=== PATIENT | male | born 1970 | race Caucasian/White ===

== ENCOUNTER 2020-05-10 15:18 | Observation (INO) | payer OTHER, SELFPAY ==
[2020-05-10] VITALS (8 sets, daily range): BP systolic 141–151; BP diastolic 82–87; PULSE 73–86; RESP 16–18; TEMP 36.5–37.1; O2SAT 96–98; BMI 24.6; BMI 24.5
--- NOTE | 2020-05-10 15:59 | EKG12_ITS ---
Test Reason : CP Blood Pressure : / mmHG Vent. Rate : 087 BPM Atrial Rate : 087 BPM P-R Int : 144 ms QRS Dur : 090 ms QT Int : 342 ms P-R-T Axes : 051 -04 -50 degrees QTc Int : 411 ms Normal sinus rhythm Nonspecific T wave abnormality :Consider Myocardial Ischemia Abnormal ECG Confirmed by LIZBET NAVAS, MELY ([id number]), slot editor ULISES BELLO ([id number]) on 05/14/2020 2:28:59 PM Referred By: ZIA Confirmed By:MELY SOMERS MD
--- NOTE | 2020-05-10 16:12 | ED.DCSUM_ITS ---
History of Present Illness Chief Complaint: Chest Pain Informant: Patient Narrative: Patient is a 49-year-old previously healthy male who presents to the emergency department for chest pain. Mostly on the left side of his chest but does go up his neck and also down his arm. He has had this intermittently over the past month. He does not know aggravating factors. He currently rates his symptoms as mild. No associated shortness of breath. He states his last stress test was 5 years ago which was normal. He has a significant family history of cardiac disease with his father and brother requiring bypass surgery. He denies any leg swelling or calf pain. No history of DVT/PE. He has not been taking anything for this. Patient denies smoking history. No associated nausea/vomiting. No recent illnesses including any cough or fever/chills. Past Medical History - Allergies and Home Meds Allergies/Adverse Reactions: Allergies acetaminophen [From Tylenol] Adverse Reaction (Verified 05/10/20 18:31) Laryngospasms Prior records reviewed: Yes Past Medical History: None Smoking Status: Former smoker - Family History Maternal Family History: Reports: - - Denies known maternal medical history including cardiac history. Paternal Family History: Reports: Heart Disease Sibling Family History: Reports: Heart Disease Review of Systems All systems negative except as indicated General: Denies: Chills, Fever, Sweats Eyes: Denies: Visual changes - bilaterally, Diplopia ENT: Denies: Rhinorrhea, Sore throat Cardiovascular: Reports: Chest pain. Denies: Palpitations Respiratory: Denies: Dyspnea, Cough, Dyspnea on exertion Gastrointestinal: Denies: Abdominal pain, Nausea, Vomiting, Diarrhea Genitourinary: Denies: Dysuria, Hematuria, Frequency Musculoskeletal: Denies: Back pain, Extremity Pain Skin: Denies: Rash, Wounds Neurological: Denies: Headache, Weakness, Numbness Physical Exam Vital Signs/Narrative: Vital Signs Temp Pulse Resp BP Pulse Ox 05/10/20 16:04 98 05/10/20 15:36 84 17 141/83 H 98 05/10/20 15:19 97.8 F 86 16 151/87 H 96 Inital Vital Signs reviewed: Yes General: Well nourished, Well developed, No Acute Distress Head: Normocephalic, Atraumatic Eyes: Perrl, EOMI ENT: Moist mucous membranes, No rhinorrhea Neck: Supple, Nontender Cardiovascular: Regular rate, Regular rhythm, No murmurs Respiratory: No distress, CTA bilaterally, Chest nontender Abdomen: Soft, Nontender, Nondistended, Normal bowel sounds Back: Nontender, Normal Inspection Extremities: Nontender, No edema. Negative for: Calf Tenderness Skin: Normal color, No rash Neurological: Alert, Oriented x3, Normal Strength, Normal Sensation Psychological: Normal affect, Normal Mood Diagnostic/Tx/Re-eval - EKG Initial EKG Interpretation: Sinus Rhythm, Inverted T-Waves, Non-Specific ST Changes - Medical Decision Making Patient presents to the emergency department for chest pain. It has been intermittent and radiates. He has a significant family history. EKG, chest x- ray basic lab work being obtained. Patient given a dose of aspirin. Patient's EKG did not show any signs of acute ST elevation or depression. There are some T wave inversions. He has a highly suspicious story, significant risk factor with the family and with his age he has a heart score of 6. His troponin is mildly elevated. Will bring him into the hospital for further evaluation and management. He understands and is agreeable with this plan. He otherwise has been stable throughout ED stay. ED Disposition - Plan for ED Patient: Disposition: Acute Care Hospital [facility] Diagnosis: NSTEMI (non-ST elevated myocardial infarction), Chest pain
--- NOTE | 2020-05-10 16:14 | RAD_ITS ---
STUDY: X-RAY CHEST REASON FOR EXAM: Male, 49 years old. chest pain TECHNIQUE: Single AP portable view of the chest. COMPARISON: None. FINDINGS: The lungs are clear and expanded. There is no demonstrated pleural abnormality. Normal size heart. Normal mediastinum and kevin. Normal visualized pulmonary arteries. Normal visualized aortic arch and descending thoracic aorta. Normal visualized thoracic spine. Normal visualized ribs, clavicles, and shoulders. There is no demonstrated abnormality of the visualized soft tissue structures of the upper abdomen. RAD/Chest 1 View (Portable) IMPRESSION: Normal x-ray examination of the chest. Electronically Signed: Araceli Mueller MD at 17:17 EST Tel , Service support ,
[2020-05-10 16:24] LABS: Absolute Lymphocyte Count 2.66 X10^3/uL (0.83-4.51); Absolute Neutrophil Count 5.6 X10^3/uL (2.0-7.7); Basophil# 0.07 X10^3/uL; Basophil% 0.7 % (0-1); Eosinophil# 0.12 X10^3/uL; Eosinophils% 1.3 % (0-5); Hematocrit 44.5 % (40-54); Hemoglobin 14.9 g/dL (13.0-16.5); Lymphocyte # 2.66 X10^3/ul (4.0); Lymphocyte % 28.1 % (19-41); Mean Corp Hgb Conc 33.5 g/dL (32-36); Mean Corpuscular Hgb 30.1 pg (27.0-32.0); Mean Corpuscular Volume 89.9 fL (80-94); Mean Platelet Vol. 8.8 fl (6.2-12.0); Monocyte% 10.6 % (0-10); NRBC Flagged by Analyzer 0 % (0-5); Neutrophil # 5.58 X10^3/uL (2.7-7.7); Neutrophil % 58.9 % (47-70); Platelet Count 303 K/mm3 (150-450); RBC Distribution Width CV 12.4 % (11.6-14.6); RBC Distribution Width SD 40.9 fl (35.1-43.9); Red Blood Count 4.95 M/mm3 (4.6-6.2); White Blood Count 9.5 K/mm3 (4.4-11.0)
[2020-05-10 16:32] LABS: Anion Gap 5 (5-15); BUN 17 mg/dL (7-18); BUN/Creat Ratio 16.5 RATIO (10-20); Calcium,Total 9.3 mg/dL (8.5-10.1); Chloride 109 mmol/L (98-107); Creatinine, Serum 1.03 mg/dL (0.70-1.30); EST Glomerular Filtration Rate 81 mL/min (>60); Est Glom Filt Rate - Afr Amer 98 mL/min (>60); Glucose 96 mg/dL (74-106); Potassium 3.8 mmol/L (3.5-5.1); Sodium Level 141 mmol/L (136-145)
[2020-05-10] MEDS: Aspirin 81 MG TAB.CHEW 324 MG PO (16:32)
--- NOTE | 2020-05-10 17:08 | EKG12_ITS ---
Test Reason : CP ADMIT Blood Pressure : / mmHG Vent. Rate : 063 BPM Atrial Rate : 063 BPM P-R Int : 156 ms QRS Dur : 096 ms QT Int : 374 ms P-R-T Axes : 051 009 -59 degrees QTc Int : 382 ms Normal sinus rhythm T wave abnormality, consider inferolateral ischemia Abnormal ECG Confirmed by LIZBET NAVAS, MELY ([id number]), supervising editor trailer ULISES BELLO ([id number]) on 05/14/2020 2:35:55 PM Referred By: YANG Confirmed By:MELY SOMERS MD
--- NOTE | 2020-05-10 17:26 | HP.PCM_ITS ---
<Samantha Scott [employer]S WORKER - Last Filed: 05/10/20 17:35> Problem List (1) Chest pain Status: Acute (2) Hyperlipidemia Status: Chronic History of Present Illness Date of Admission: 05/10/20 Chief Complaint: Chest pain. The patient is a 49 year old M who presents the emergency room due to chest pain. Patient reports chest pain is on the left side of his chest and radiates down his left arm all the way to his wrist and also up the left side of his neck. He states symptoms have been intermittent for the past month. He thinks his symptoms are worse on an empty stomach. 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 He denies shortness of breath, diaphoresis, nausea. Patient states he had a stress test 5 years ago which was normal. He has a past medical history of hyperlipidemia. He was on a statin in the past and had to discontinue due to muscle cramping. Patient reports a significant family cardiac history including his father and brother who both have a history of CAD with bypass. Past Medical History Past Medical History (Chronic Problems): Chronic Problems Hyperlipidemia (Chronic) Allergies No Known Allergies Allergy (Verified 05/10/20 15:19) Home Medications: Ambulatory Orders Medication Instructions Recorded NK 05/10/20 Surgical History: no surgical history Psychiatric History: No pertinent psych hx Lives: Spouse/ Significant Other Smoking Status: Never smoker Alcohol: None Drugs: None - *Family History Maternal History Items: - - Denies known maternal medical history including cardiac history. Paternal History Items: Heart Disease Sibling History Items: Heart Disease Review of Systems Constitutional: Denies: Chills, Fever, Weight Change HEENT: Denies: Head Aches, Sinus Congestion, Sinus Drainage Cardiovascular: Reports: Chest Pain Respiratory: Denies: Cough, Shortness of breath at rest, Sputum production Gastrointestinal: Denies: Abdominal Pain, Nausea, Vomiting Genitourinary: Denies: Dysuria Musculoskeletal: Denies: Joint Pain, Joint Tenderness Skin: Denies: Rash, Wounds Neurological: Denies: Numbness, Tingling, Focal weakness Psychiatric: Denies: Anxiety, Depression, Homicidal Ideations, Suicidal Ideations Hematologic/ Lymphatic: Denies: Easy Bruising, Easy Bleeding VTE Information - Inpt Only VTE Present on Admission: No VTE Mechan Device Prophylaxis: None VTE Pharm Prophylaxis ordered?: Yes - Physical Exam Vitals/I&O's: Vital Signs Temp Pulse Resp BP Pulse Ox 97.8 F 84 17 141/83 H 98 05/10/20 15:19 05/10/20 15:36 05/10/20 15:36 05/10/20 15:36 05/10/20 16:04 Oxygen Delivery Method Room Air Weight: 167 lb Body Mass Index (BMI) 24.6 General: Alert, Oriented x3, Cooperative HEENT: Atraumatic, PERRLA, EOMI, Normocephalic Neck: Supple, No JVD, Negative Carotid Bruits Lungs: Clear to auscultation, Normal air movement Cardiovascular: Regular rate, No murmurs Abdomen: Bowel Sounds Present, Soft, Non Tender Extremities: No clubbing, No cyanosis, No edema, Capillary Refill Less than 3 Seconds Skin: No rashes, No breakdown Musculoskeletal: No Tenderness to Palpation of Joints or Extremities Neurological: Cranial nerves II-XII grossly intact, Neuro grossly intact Psych/Mental Status: Normal Affect, Appropriate Laboratory Results 05/10/20 15:30: WBC 9.5, RBC 4.95, Hgb 14.9, Hct 44.5, MCV 89.9, MCH 30.1, MCHC 33.5, RDW Std Deviation 40.9, RDW Coeff of Sayda 12.4, Plt Count 303, MPV 8.8, Immature Gran % (Auto) 0.400, Neut % (Auto) 58.9, Lymph % (Auto) 28.1, Jefferson % (Auto) 10.6 H, Eos % (Auto) 1.3, Baso % (Auto) 0.7, Absolute Neuts (auto) 5.6, Absolute Lymphs (auto) 2.66, Nucleated RBC % 0 05/10/20 15:30: Sodium 141, Potassium 3.8, Chloride 109 H, Carbon Dioxide 27.0, Anion Gap 5, BUN 17, Creatinine 1.03, Estim Creat Clear Calc 85.80, Est GFR (MDRD) Af Amer 98, Est GFR (MDRD) Non-Af 81, BUN/Creatinine Ratio 16.5, Glucose 96, Calcium 9.3, Troponin I 0.080 H Current Medications Acetaminophen (Acetaminophen 325 Mg Tablet) 650 mg PO Q6H PRN PRN PRN Reason: Pain Score 1-10/Temp > 100.7 F Aspirin (Aspirin E.C. 81 Mg Tablet) 81 mg PO DAILY@0800 [facility] Atorvastatin Calcium (Atorvastatin Calcium 40 Mg Tablet) 40 mg PO QHS [facility] Assessment/Plan All Active Problems Chest pain (Acute) 1. Chest pain-initial troponin 0.08. EKG without acute ischemia however demonstrates T wave inversions. Aspirin. Trend enzymes. Plan for treadmill stress test in a.m. unless troponins increase. If troponins trend upward, cardiology consult. 2. Indeterminate troponin-initial troponin 0.08. Trend enzymes. 3. Hyperlipidemia-not on regimen due to history of cramping with statins. Fasting lipid panel in a.m. DVT prophylaxis-Lovenox subcu This patient was seen by SOURAV Mercedes under the supervision of Dr. Cantu. <Alma Cantu - Last Filed: 05/10/20 19:36> History of Present Illness I agree with the above and the following is a reflection of my independent history and physical exam Mr Hill is a 49 year old M with a PMH of HPL who presented to the ED on 05/10 with CP. The pain is L side and radiates to his L neck and shoulder and even down his L arm at times. He states that he has no other associated sx and it is not necessarily induced by exertion. It has been fluctuating for about the last month. He states that his father at 56 from a massive SC and that his brother had a CABGx3 when he was in his mid 40's. The pt had a normal stress test about 5 yrs ago. He is HTN in the ED but all other vitals are stable. EKG showed mild (>1mm) of ST depression in V5-6. His initial troponin was mildly elevated at 0.08. CXR is unremarkable. He is currently pain free. He wanted to leave [place] initially but elected to stay. Past Medical History Allergies acetaminophen [From Tylenol] Adverse Reaction (Verified 05/10/20 18:31) Laryngospasms Review of Systems Constitutional: Denies: Anorexia, Chills, Fever, Malaise, Weakness, Weight Change, Fatigue Cardiovascular: Reports: Chest Pain, Chest Tightness. Denies: Edema, Heaviness, Light Headedness, Orthopnea, Palpitations, Paroxysmal Noc. Dyspnea, Syncope Respiratory: Denies: Cough, Hemoptysis, Pleuritic Pain, Shortness of Breath, Shortness of breath upon exertion, Sputum production, Wheezing Gastrointestinal: Denies: Abdominal Pain, Constipation, Diarrhea, Nausea, Vomiting Genitourinary: Denies: Dysuria, Frequency Musculoskeletal: Denies: Joint Pain, Joint stiffness, Joint swelling, Joint Tenderness Skin: Denies: Dryness, Jaundice, Lesions, Pruritis, Rash, Skin Changes, Wounds Neurological: Denies: Slurred speech, Confusion, Focal weakness, Headaches, Incoordination, Numbness, Tingling, Tremor, Seizures Psychiatric: Denies: Anxiety, Depression Hematologic/ Lymphatic: Denies: Anemia, Easy Bruising, Easy Bleeding VTE Information - Inpt Only VTE Present on Admission: No - Physical Exam Vitals/I&O's: Vital Signs Temp Pulse Resp BP Pulse Ox 98.5 F 80 18 151/86 H 98 05/10/20 18:00 05/10/20 18:00 05/10/20 18:00 05/10/20 18:00 05/10/20 18:00 Oxygen Delivery Method Room Air Weight: 75.2 kg Body Mass Index (BMI) 24.5 General: Alert, Oriented x3, Cooperative, No apparent distress, Well developed, Well nourished, - - middle aged Methodist male, lying in bed, appears comfortable HEENT: Atraumatic, PERRLA, EOMI, Normocephalic, EAC Clear Oral: Moist Mucosa Neck: Supple, No JVD, Negative Carotid Bruits, Trachea Midline, Thyroid Normal Size and Texture Lungs: Clear to auscultation, Normal air movement, No rhonchi, No wheeze, No rales Cardiovascular: Regular rate, Regular Rhythm, Normal S1, Normal S2, No murmurs, No Ectopic Activity, No rub noted, No Gallop Abdomen: Bowel Sounds Present, Soft, Non Tender Extremities: No clubbing, No cyanosis, No edema, Capillary Refill Less than 3 Seconds, Peripheral Pulses Normal Skin: No rashes, No breakdown Neurological: Cranial nerves II-XII grossly intact, Neuro grossly intact Psych/Mental Status: Normal Affect, Appropriate Laboratory Results 05/10/20 15:30: WBC 9.5, RBC 4.95, Hgb 14.9, Hct 44.5, MCV 89.9, MCH 30.1, MCHC 33.5, RDW Std Deviation 40.9, RDW Coeff of Sayda 12.4, Plt Count 303, MPV 8.8, Immature Gran % (Auto) 0.400, Neut % (Auto) 58.9, Lymph % (Auto) 28.1, Jefferson % (Auto) 10.6 H, Eos % (Auto) 1.3, Baso % (Auto) 0.7, Absolute Neuts (auto) 5.6, Absolute Lymphs (auto) 2.66, Nucleated RBC % 0 05/10/20 15:30: Sodium 141, Potassium 3.8, Chloride 109 H, Carbon Dioxide 27.0, Anion Gap 5, BUN 17, Creatinine 1.03, Estim Creat Clear Calc 85.80, Est GFR (MDRD) Af Amer 98, Est GFR (MDRD) Non-Af 81, BUN/Creatinine Ratio 16.5, Glucose 96, Calcium 9.3, Troponin I 0.080 H 05/10/20 18:58: Troponin I Pending Current Medications Aspirin (Aspirin E.C. 81 Mg Tablet) 81 mg PO DAILY@0800 JAIRO Enoxaparin Sodium (Enoxaparin 40 Mg/0.4 Ml Syringe) 40 mg SC DAILY JAIRO Sodium Chloride (0.9% Saline Lock 10 Ml Syringe) 10 - 40 ml IV UD PRN PRN Reason: SALINE FLUSH Assessment/Plan ASSESSMENT CP Indeterminate Troponin HPL Elevated BP PLAN -cycle enzymes -had mm cramping with statins so not treated -asa TM Stress test in am if no sig rise in troponin -if trend up with consult cards for cath -am lipids -watch BP--> if remains elevated may need rx at d/c Inpatient E&M: 89780 Init Hosp L2
[2020-05-11] VITALS (17 sets, daily range): BP systolic 122–154; BP diastolic 72–110; PULSE 65–95; RESP 16–18; TEMP 36.3–37.2; O2SAT 96–99
[2020-05-11] MEDS: 0.9% Saline Lock 10 ML Syringe IV ×2 (03:14→12:47)
--- NOTE | 2020-05-11 05:55 | EKG12_ITS ---
Test Reason : AM EKG Blood Pressure : / mmHG Vent. Rate : 071 BPM Atrial Rate : 071 BPM P-R Int : 158 ms QRS Dur : 098 ms QT Int : 384 ms P-R-T Axes : 051 006 -61 degrees QTc Int : 417 ms Normal sinus rhythm T wave abnormality, consider inferolateral ischemia Abnormal ECG Confirmed by LIZBET NAVAS, MELY ([id number]), purchasing expeditor ULISES BELLO ([id number]) on 05/14/2020 2:44:57 PM Referred By: YANG Confirmed By:MELY SOMERS MD
[2020-05-11] MEDS: Aspirin E.C. 81 MG Tablet PO (06:23)
[2020-05-11 06:27] LABS: Cholesterol 269 mg/dL (200); High Density Lipoprotein 52 mg/dL; Triglycerides 103 mg/dL; Very Low Density Lipoprotein 21 mg/dL (5-40)
--- NOTE | 2020-05-11 10:51 | STRESSREP ---
Stress Test Report Date: 05-11-2020 Procedure: Exercise tolerance test/imaging study Indications: Chest pain Consent: Per the patient Procedure: The patient exercised on a Jono protocol for 9 minutes completing Stage III achieving a peak heart rate of 155 bpm (91% predicted maximal heart rate) with a peak blood pressure 178/98 mmHg and a peak MET capacity of 10 METs. The baseline ECG demonstrated normal sinus rhythm; T wave abnormality: Consider myocardial fgegltjf-[id number]-ogeifex-inferior. The peak exercise ECG demonstrated no obvious ECG changes. There were occasional PVCs and an isolated ventricular couplet during exercise and occasional PVCs during recovery. The functional capacity was considered good. There was no complaint of chest discomfort during exercise or recovery. The examination was discontinued secondary to target heart rate achieved. Impression: 1. Technically adequate (percent predicted maximal heart rate greater than 85%) exercise tolerance test 2. Peak exercise ECG with no obvious ECG changes 3. There were occasional PVCs and an isolated ventricular couplet during exercise and occasional PVCs during recovery 4. Nuclear images pending Myocardial perfusion imaging study: Technique: The patient was injected with 11.7 mCi of technetium 99m Cardiolite and subsequently rest SPECT Cardiolite nuclear imaging was obtained in the horizontal long, vertical long, and short axis views. The patient exercised on a Jono protocol for 9 minutes completing Stage III achieving a peak heart rate of 155 bpm (91% predicted maximal heart rate) with a peak blood pressure 178/98 mmHg and a peak MET capacity of 10 METs. The patient was injected with 32.5 mCi of technetium 99m Cardiolite and subsequently stress SPECT Cardiolite nuclear imaging was obtained in the horizontal long, vertical long, and short axis views. A gated Cardiolite study at peak stress was obtained. Interpretation: Rest and stress SPECT Cardiolite nuclear imaging status post realignment, normalization, and attenuation correction, demonstrates the appearance status post stress of an area of diminished tracer uptake in portions of the mid inferior segments. There is end systolic thickening and brightening. The gated Cardiolite study demonstrates myocardial thickening and inward wall motion. The reported LVEF is 58%. Impression: 1. Rest and stress SPECT Cardiolite nuclear imaging demonstrate myocardial perfusion changes concerning for an area of stress-induced myocardial ischemia in the mid inferior segments, however, an element of shifting soft tissue attenuation/artifact cannot necessarily be excluded. 2. The gated Cardiolite study reports an LVEF of 58%. This note was generated with [employer] software. It may contain incorrect words, spelling, and punctuation that were not noted in checking the note before signing.
--- NOTE | 2020-05-11 11:49 | PCM.PROGNOTE ---
<TylerSamantha PANTS MAKER - Last Filed: 05/11/20 11:56> Patient Problems: Active and Suspected Problems Chest pain (Acute) NSTEMI (non-ST elevated myocardial infarction) (Acute) Subjective: Patient seen and examined. Denies further chest pain overnight. Underwent nuclear stress test which was reported to be abnormal, demonstrating stress-induced myocardial ischemia. - Physical Exam Vitals/I&O's: Vital Signs Temp Pulse Resp BP Pulse Ox 98.9 F 95 16 122/75 H 98 05/11/20 06:20 05/11/20 11:47 05/11/20 06:20 05/11/20 06:20 05/11/20 06:20 Oxygen Delivery Method Room Air Weight: 165 lb 12.602 oz Body Mass Index (BMI) 24.5 Intake and Output for Last 24 Hours 05/09/20 05/10/20 05/11/20 23:59 23:59 23:59 Intake Total 475 / 475 Output Total 900 / 900 Balance 475 / 475 -900 / -900 General: Alert, Oriented x3, Cooperative HEENT: Atraumatic, PERRLA, EOMI, Normocephalic Neck: Supple, No JVD, Negative Carotid Bruits Lungs: Clear to auscultation, Normal air movement Cardiovascular: Regular rate, No murmurs Abdomen: Bowel Sounds Present, Soft, Non Tender, Non-Distended Extremities: No clubbing, No cyanosis, No edema, Capillary Refill Less than 3 Seconds Skin: No rashes, No breakdown Musculoskeletal: No Tenderness to Palpation of Joints or Extremities Neurological: Cranial nerves II-XII grossly intact, Neuro grossly intact Psych/Mental Status: Normal Affect, Appropriate Laboratory Results 05/10/20 15:30: WBC 9.5, RBC 4.95, Hgb 14.9, Hct 44.5, MCV 89.9, MCH 30.1, MCHC 33.5, RDW Std Deviation 40.9, RDW Coeff of Sayda 12.4, Plt Count 303, MPV 8.8, Immature Gran % (Auto) 0.400, Neut % (Auto) 58.9, Lymph % (Auto) 28.1, [place] % (Auto) 10.6 H, Eos % (Auto) 1.3, Baso % (Auto) 0.7, Absolute Neuts (auto) 5.6, Absolute Lymphs (auto) 2.66, Nucleated RBC % 0 05/10/20 15:30: Sodium 141, Potassium 3.8, Chloride 109 H, Carbon Dioxide 27.0, Anion Gap 5, BUN 17, Creatinine 1.03, Estim Creat Clear Calc 85.80, Est GFR (MDRD) Af Amer 98, Est GFR (MDRD) Non-Af 81, BUN/Creatinine Ratio 16.5, Glucose 96, Calcium 9.3, Troponin I 0.080 H 05/10/20 18:58: Troponin I 0.062 H 05/10/20 21:33: Troponin I 0.062 H 05/11/20 05:15: Triglycerides 103, Cholesterol 269 H, LDL Cholesterol 196 H, VLDL Cholesterol 21, HDL Cholesterol 52 Current Medications Aspirin (Aspirin E.C. 81 Mg Tablet) 81 mg PO DAILY@0800 [facility] Last Admin: 05/11/20 06:23 Dose: 81 mg Documented by: Enoxaparin Sodium (Enoxaparin 40 Mg/0.4 Ml Syringe) 40 mg SC DAILY [facility] Sodium Chloride (0.9% Saline Lock 10 Ml Syringe) 10 - 40 ml IV UD PRN PRN Reason: SALINE FLUSH Last Admin: 05/11/20 03:14 Dose: 10 ml Documented by: Medical Necessity - Tobacco Use Smoking Status: Never smoker Tobacco Use: Non-smoker Assessment/Plan All Active Problems Chest pain (Acute) NSTEMI (non-ST elevated myocardial infarction) (Acute) 1. Chest pain, abnormal stress test-EKG without acute ischemia however demonstrates T wave inversions. Aspirin. Patient underwent stress test which demonstrated possible stress induced myocardial ischemia in the mid inferior segments. Cardiology consult placed. 2. Indeterminate troponin-enzymes trended down. Abnormal stress test as noted above. Cardiology consulted. 3. Hyperlipidemia-history of statin intolerance. Lipid panel elevated. Will begin low-dose statin to see if patient is able to tolerate. DVT prophylaxis-Lovenox subcu This patient was seen by SOURAV Mercedes under the supervision of Dr. Dejesus. <Wali Dejesus - Last Filed: 05/11/20 12:25> - Physical Exam Vitals/I&O's: Vital Signs Temp Pulse Resp BP Pulse Ox 98.9 F 95 16 122/75 H 98 05/11/20 06:20 05/11/20 11:47 05/11/20 06:20 05/11/20 06:20 05/11/20 06:20 Oxygen Delivery Method Room Air Weight: 75.2 kg Body Mass Index (BMI) 24.5 Intake and Output for Last 24 Hours 05/09/20 05/10/20 05/11/20 23:59 23:59 23:59 Intake Total 475 / 475 Output Total 900 / 900 Balance 475 / 475 -900 / -900 Laboratory Results 05/10/20 15:30: WBC 9.5, RBC 4.95, Hgb 14.9, Hct 44.5, MCV 89.9, MCH 30.1, MCHC 33.5, RDW Std Deviation 40.9, RDW Coeff of Sayda 12.4, Plt Count 303, MPV 8.8, Immature Gran % (Auto) 0.400, Neut % (Auto) 58.9, Lymph % (Auto) 28.1, [place] % (Auto) 10.6 H, Eos % (Auto) 1.3, Baso % (Auto) 0.7, Absolute Neuts (auto) 5.6, Absolute Lymphs (auto) 2.66, Nucleated RBC % 0 05/10/20 15:30: Sodium 141, Potassium 3.8, Chloride 109 H, Carbon Dioxide 27.0, Anion Gap 5, BUN 17, Creatinine 1.03, Estim Creat Clear Calc 85.80, Est GFR (MDRD) Af Amer 98, Est GFR (MDRD) Non-Af 81, BUN/Creatinine Ratio 16.5, Glucose 96, Calcium 9.3, Troponin I 0.080 H 05/10/20 18:58: Troponin I 0.062 H 05/10/20 21:33: Troponin I 0.062 H 05/11/20 05:15: Triglycerides 103, Cholesterol 269 H, LDL Cholesterol 196 H, VLDL Cholesterol 21, HDL Cholesterol 52 Current Medications Aspirin (Aspirin E.C. 81 Mg Tablet) 81 mg PO DAILY@0800 [facility] Last Admin: 05/11/20 06:23 Dose: 81 mg Documented by: Atorvastatin Calcium (Atorvastatin Calcium 20 Mg Tablet) 20 mg PO QHS [facility] Enoxaparin Sodium (Enoxaparin 40 Mg/0.4 Ml Syringe) 40 mg SC DAILY [facility] Sodium Chloride (0.9% Saline Lock 10 Ml Syringe) 10 - 40 ml IV UD PRN PRN Reason: SALINE FLUSH Last Admin: 05/11/20 03:14 Dose: 10 ml Documented by: Assessment/Plan This patient was seen in conjunction with SOURAV Mercedes . I have independently interviewed and examined the patient and reviewed pertinent historical, laboratory, and other data. Please refer to SOURAV Mercedes note for details of this patient's presentation, findings, and recommendations. I have reviewed SOURAV Mercedes note and concur with documented findings. In brief, patient is a 49-year-old female admitted with chest pain with abnormal troponin. Patient underwent a nuclear stress test which was reported to be abnormal with evidence of myocardial ischemia in the mid inferior segment. Cardiology subsequently consulted Physical Examination: GENERAL: cooperative HEENT: Atraumatic; EYES; Anicteric, Normal Conjunctiva NECK; supple, normal thyroid, RESPIRATORY: Diminished to auscultation CARDIOVASCULAR: Regular S1 S2, GI: soft, normoactive bowel sounds, : No Renal angle tenderness; EXTREMITIES: No edema, no clubbing, MUSCULOSKELETAL: no muscle waisting NEURO: Awake; no lateralizing signs. SKIN: No Rash PSYCH; Flat affect Assessment: 1. Chest pain with abnormal stress test 2. Elevated troponin 3. Dyslipidemia 4. DVT prophylaxis Recommendations: 1. I have discussed the results of my overview and impressions with the patient 2. Options for management were reviewed OBSV E&M: [id number] Observ/hosp same date L3
--- NOTE | 2020-05-11 12:26 | PCM.CONS.C ---
Problem List (1) Chest pain Status: Acute (2) NSTEMI (non-ST elevated myocardial infarction) Status: Acute (3) Hyperlipidemia Status: Chronic Reason for Consult Date of Consultation: 05/11/20 History of Present Illness: The patient is a 49 year oldtka-hsfh-qgr white male who states he has a past medical history of hyperlipidemia (cannot tolerate statins secondary to myalgias), hypertension these not requiring medical therapy), and a family history of cardiovascular disease in his father and brothers which does include CAD and the need for CABG and a brother-at a young age, who presents for evaluation of chest discomfort with findings of abnormal cardiac enzymes concerning for non-ST segment elevation MD, and abnormal ECG demonstrating T wave changes raising concerns of myocardial ischemia in the inferolateral distribution, and an abnormal stress nuclear imaging study demonstrating concerns of stress-induced myocardial ischemia in the inferior distributions. He states he gets cramping discomforts in his chest, both upper extremities, which wax and wane, and are not necessarily associated with nausea, emesis, diaphoresis, or dyspnea. Based upon his concerns he presented for further evaluation and care. He was found to have abnormal troponin I levels, the abnormal ECG, and subsequently underwent a stress nuclear imaging study with the aforementioned findings. He has been referred for cardiovascular evaluation for cardiac catheterization. [] Past Medical History Allergies/Adverse Reactions: Allergies acetaminophen [From Tylenol] Adverse Reaction (Verified 05/10/20 18:31) Laryngospasms Home Medications: Ambulatory Orders Medication Instructions Recorded NK 05/10/20 Past Medical History (Chronic Problems): Chronic Problems Hyperlipidemia (Chronic) Surgical History: no surgical history Psychiatric History: No pertinent psych hx - *Family History Maternal History Items: - - Denies known maternal medical history including cardiac history. Paternal History Items: Heart Disease Sibling History Items: Heart Disease Lives: Spouse/ Significant Other Smoking Status: Never smoker Tobacco Use: Non-smoker Alcohol: None Drugs: None Review of Systems - Review of Systems General: Denies: Fever, Night Sweats, Fatigue Cardiovascular: Reports: Chest Discomfort. Denies: Shortness of Breath, Orthopnea, PND, Peripheral Edema, Palpitations, Lightheadedness, Dizziness, Near Syncope, Syncope Respiratory: Denies: Cough, Sputum Production, Hemoptysis Gastrointestinal: Reports: Dyspepsia. Denies: Hematemesis, Hematochezia, Melena Genitourinary: Denies: Dysuria, Hematuria Skin: Denies: Rash Subjectve: This is a 49-year-old white male who presents for evaluation of the aforementioned concerns appears to be resting comfortably at the moment in no acute distress. Objective: Vital Signs Temp Pulse Resp BP Pulse Ox 98.9 F 95 16 122/75 H 98 05/11/20 06:20 05/11/20 11:47 05/11/20 06:20 05/11/20 06:20 05/11/20 06:20 Oxygen Delivery Method Room Air Weight: 165 lb 12.602 oz Body Mass Index (BMI) 24.5 Intake and Output for Last 24 Hours 05/09/20 05/10/20 05/11/20 23:59 23:59 23:59 Intake Total 475 / 475 Output Total 900 / 900 Balance 475 / 475 -900 / -900 General: Awake, Alert, Oriented x 3, Cooperative, No Acute Distress HEENT: Atraumatic, Normocephalic, PERRL, EOMI, Sclera Non Icteric Neck: Supple, Good ROM, No JVD Lungs: Clear to auscultation Cardiovascular: Regular Rhythm, Normal S1, Normal S2 Vascular: No Carotid Bruits Abdomen: Bowel Sounds Present, Soft, Non Tender Extremities: No edema Neurological: No Focal Motor or Sensory Deficit Psych/Mental Status: Appropriate 05/10/20 15:30: WBC 9.5, RBC 4.95, Hgb 14.9, Hct 44.5, MCV 89.9, MCH 30.1, MCHC 33.5, Plt Count 303, MPV 8.8, Immature Gran % (Auto) 0.400, Neut % (Auto) 58.9, Lymph % (Auto) 28.1, [place] % (Auto) 10.6 H, Eos % (Auto) 1.3, Baso % (Auto) 0.7, Absolute Neuts (auto) 5.6, Nucleated RBC % 0 05/10/20 15:30: Sodium 141, Potassium 3.8, Chloride 109 H, Carbon Dioxide 27.0, Anion Gap 5, BUN 17, Creatinine 1.03, Est GFR (MDRD) Af Amer 98, Est GFR (MDRD) Non-Af 81, BUN/Creatinine Ratio 16.5, Glucose 96, Calcium 9.3, Troponin I 0.080 H 05/10/20 18:58: Troponin I 0.062 H 05/10/20 21:33: Troponin I 0.062 H 05/11/20 05:15: Triglycerides 103, Cholesterol 269 H, LDL Cholesterol 196 H, VLDL Cholesterol 21, HDL Cholesterol 52 Rhythm: Sinus rhythm EKG: As noted above Stress Test: Stress Test Report Date: 05-11-2020 Procedure: Exercise tolerance test/imaging study Indications: Chest pain Consent: Per the patient Procedure: The patient exercised on a Jono protocol for 9 minutes completing Stage III achieving a peak heart rate of 155 bpm (91% predicted maximal heart rate) with a peak blood pressure 178/98 mmHg and a peak MET capacity of 10 METs. The baseline ECG demonstrated normal sinus rhythm; T wave abnormality: Consider myocardial dybsnvvl-brgrmvcz-iojebfg-inferior. The peak exercise ECG demonstrated no obvious ECG changes. There were occasional PVCs and an isolated ventricular couplet during exercise and occasional PVCs during recovery. The functional capacity was considered good. There was no complaint of chest discomfort during exercise or recovery. The examination was discontinued secondary to target heart rate achieved. Impression: 1. Technically adequate (percent predicted maximal heart rate greater than 85%) exercise tolerance test 2. Peak exercise ECG with no obvious ECG changes 3. There were occasional PVCs and an isolated ventricular couplet during exercise and occasional PVCs during recovery 4. Nuclear images pending Myocardial perfusion imaging study: Technique: The patient was injected with 11.7 mCi of technetium 99m Cardiolite and subsequently rest SPECT Cardiolite nuclear imaging was obtained in the horizontal long, vertical long, and short axis views. The patient exercised on a Jono protocol for 9 minutes completing Stage III achieving a peak heart rate of 155 bpm (91% predicted maximal heart rate) with a peak blood pressure 178/98 mmHg and a peak MET capacity of 10 METs. The patient was injected with 32.5 mCi of technetium 99m Cardiolite and subsequently stress SPECT Cardiolite nuclear imaging was obtained in the horizontal long, vertical long, and short axis views. A gated Cardiolite study at peak stress was obtained. Interpretation: Rest and stress SPECT Cardiolite nuclear imaging status post realignment, normalization, and attenuation correction, demonstrates the appearance status post stress of an area of diminished tracer uptake in portions of the mid inferior segments. There is end systolic thickening and brightening. The gated Cardiolite study demonstrates myocardial thickening and inward wall motion. The reported LVEF is 58%. Impression: 1. Rest and stress SPECT Cardiolite nuclear imaging demonstrate myocardial perfusion changes concerning for an area of stress-induced myocardial ischemia in the mid inferior segments, however, an element of shifting soft tissue attenuation/artifact cannot necessarily be excluded. 2. The gated Cardiolite study reports an LVEF of 58%. CXR: Preliminary evaluation: No acute cardiopulmonary disease process appreciated: Please see official report Assessment/Plan 1. Chest pain The patient has been experiencing chest pain. He describes it as a cramping sensation in his chest and bilateral upper extremities. He has been undergoing evaluation. He has had troponin I levels which have been considered abnormal. Also, his ECG and his stress nuclear imaging study was considered abnormal. He also states he has a history of indigestion . He states he takes an H2 antagonist for this. He does wonder whether this symptom is truly gastrointestinal versus whether this could be cardiac. At the moment he is resting comfortably. He continues to be monitored. He has been placed on medical management with aspirin. He has been recommended for further evaluation with diagnostic cardiac catheterization. The procedure and risks were discussed with him and he was agreeable to this approach. 2. Non-STEMI The patient has abnormal cardiac enzymes and abnormal ECG which is raise concerns of a non-STEMI. Thus far has had no other obvious etiology to explain his cardiac enzyme profile, etc. He is continuing to be monitored. He is continuing medical therapy. He has been recommended for further evaluation with diagnostic cardiac catheterization. 3. Hyperlipidemia He does have hyperlipidemia. He states he is intolerant to statins secondary to myalgias. He may need to center reattempt at alternative statins or nonstatin medical therapy to help improve his cardiovascular risk. Comment: The above was discussed with the patient and the [facility] staff. This note was generated using a voice recognition system and there may be incorrect words, spelling or punctuation that were not noted when reviewing the office note prior to saving. Procedure Criteria Procedure Type: Elective COVID Risk Discussion: The surgeon/proceduralist and patient have discussed in detail the risk of exposure to and/or potential harm posed by the COVID-19 virus with having a surgery/procedure at this time versus the risk of delaying the surgery/procedure. It is not possible to know either the risk of delaying the surgery or procedure or chance of getting an infection with perfect accuracy, but a joint decision was made between the patient and the surgeon/proceduralist to proceed at this time with the scheduled surgery/procedure as indicated on the consent form.
[2020-05-11] MEDS: TICAGRELOR 90 MG TABLET 180 MG PO (12:47)
--- NOTE | 2020-05-11 14:02 | ECHOD_ITS ---
Reason For Study: CAD Procedure This was a 2D Doppler, Color Flow transthoracic echocardiogram. Exam performed portable in patient room. Left Ventricle Normal LV size. Mild segmental systolic dysfunction (see wall motion). The estimated ejection fraction is 50 %. Transmitral doppler flow suggestive of impaired relaxation of left ventricle. Infero-Basal: Hypokinetic. Mid-Inferior: Hypokinetic. Right Ventricle Normal RV size. Normal systolic function. Atria Normal left atrium. Normal right atrium. No doppler evidence for ASD. Mitral Valve There is no mitral annular calcification. Normal mitral valve. Trivial mitral valve insufficiency. Tricuspid Valve Myxomatous appearing tricuspid valve. Trivial tricuspid valve insufficiency. Aortic Valve Trisinus/trileaflet aortic valve. Normal aortic valve. Pulmonic Valve The pulmonic valve is not well visualized. Trivial pulmonic valve insufficiency. Great Vessels Normal sized aortic root. Pericardium/Pleural No pericardial effusion. MMode/2D Measurements & Calculations LVIDd: 5.3 cm IVSd: 0.97 cm Ao root diam: 2.8 cm LVIDs: 4.0 cm LVPWd: 1.0 cm RVDd: 3.2 cm FS: 24.5 % LAV(MOD-bp): 31.3 ml LVAd ap4: 31.6 cm2 SV(MOD-sp4): 49.7 ml LAV(MOD-bp) Indexed: 16.5 ml/m2 EDV(MOD-sp4): 107.1 ml LAV(MOD-sp2): 31.9 ml EDV(sp4-el): 108.8 ml LAV(MOD-sp4): 27.1 ml LVAs ap4: 21.3 cm2 ESV(MOD-sp4): 57.4 ml ESV(sp4-el): 59.1 ml EF(MOD-sp4): 46.4 % EF(sp4-el): 45.7 % SV(sp4-el): 49.7 ml LA A4 area: 12.8 cm2 LA dimension(2D): 3.3 cm RA A4 area: 13.2 cm2 Time Measurements MV dec time: 0.18 sec Doppler Measurements & Calculations MV E max jhonny: 44.1 cm/sec Lat Peak E' Jhonny: 10.3 cm/sec Med Peak E' Jhonny: 5.7 cm/sec MV A max jhonny: 51.8 cm/sec E/E' lat: 4.3 E/E' med: 7.8 MV E/A: 0.85 Ao V2 max: 116.9 cm/sec LV V1 max: 72.8 cm/sec PA V2 max: 100.4 cm/sec Ao max P.5 mmHg LV V1 max P.1 mmHg PI end-d jhonny: 94.4 cm/sec Interpretation Summary Mild segmental systolic dysfunction (see wall motion). The estimated ejection fraction is 50 %. Trivial mitral valve insufficiency. Trivial tricuspid valve insufficiency. Trivial pulmonic valve insufficiency. Transmitral doppler flow suggestive of impaired relaxation of left ventricle Ordering Physician: Abelardo Carcamo Referring Physician: ZACH KOROMA Performed By: Telma Lyon, RDCS, RVT
[2020-05-11] MEDS: 0.9% Normal Saline 1,000 ML 100 ML IV (14:50)
--- NOTE | 2020-05-11 14:59 | CL.I_ITS ---
Patient Name: CALVIN ROWE Study Date: 05/11/2020 Performing: Rachael Franz MD Ht: 68.89 inches 175 cm : 1970 Wt: 165.35 lbs 75 kg Age: 49 Gender: male BSA: 1.9 PROCEDURE(S) PERFORMED [id number] W OR WO PTCA, SINGLE CORONARY ARTERY CLINICAL PROFILE AND CO-MORBIDITIES Indications: Suspected CAD, ACS <= 24 hrs Heart Failure: None Angina Classification Anginal Classification w/in 2 Weeks: CCS III CAD Presentations: Non-STEMI. CONCLUSIONS Successful JANIS to mRCA RECOMMENDATIONS ASA Indefinimikel Faust for at least 12 months Follow up with Dr. Carcamo DESCRIPTION OF PROCEDURE The patient arrived to the procedure lab. The risks and benefits of the procedure as well as a full d escription of our services here and current unavailability of surgical backup were fully explained to the patient and/or their significant other prior to the catheterization. The Timeout was completed, verifying the correct patient and procedure. The patient's procedural site was prepped and draped in the usual fashion. Local anesthetic was given subcutaneously to right radial region with Lidocaine 2% Using a modified Seldinger technique,arterial access was obtained via the right radial artery, a 6Fr sheath was inserted. Left Coronary Artery selective angiography was performed in multiple views usin g a 5 Fr. 4.0 [place] catheter. Right Coronary Artery selective angiography was then performed in multi ple views using a 5 Fr. 4.0 [place] catheter. Left Ventriculography was performed in SYED projection usi ng a 5 Fr. [place] catheter. LV to AO pullback pressures were then recorded.The images were reviewed and options discussed. A decision was then made to proceed with an Intervention, IVUS o r other adjunct procedure. jr 4 Guide catheter was inserted and engaged into the RCA. bmw Guide wire was advanced to the RCA . emerge 1.5 x 15 Balloon catheter was advanced across lesion in the right coronary, mid. PTCA balloo n inflated at 6 atms for 8 secs. ar 2 Guide catheter was inserted and engaged into the RCA. runthroug h Guide wire was advanced to the RCA. emerge 1.5 x 15 Balloon catheter was advanced across lesion in the right coronary, mid. PTCA balloon inflated at 6 atms for 10 secs. PTCA balloon inflated at 6 atms for 10 secs. PTCA balloon inflated at 6 atms for 5 secs. emerge 2.00 x 15 Balloon catheter was advan antonino across lesion in the right coronary, mid. PTCA balloon inflated at 12 atms for 14 secs. Angiogram performed post balloon dilatation. synergy 3.00 x 20 Drug Eluting stent was advanced across the lesi on in the right coronary, mid. Angiogram performed post stent deployment. Angiogram performed post st ent deployment. NC Emerge 3.0 x 12 Balloon catheter was inserted. Balloon catheter was advanced across lesion in the right coronary, mid. Angiogram performed pre balloon dilatation. Angiog shayy performed post balloon dilatation. The arterial sheath was pulled and a TR Band was applied for hemostasis INTERVENTION INFORMATION LESION SITE: RCA (Mid) Lesion Complexity: High/C, chronic total occlusion: No, lesion at bifurcation: No, thrombus present: No, lesion length: 18 mm, culprit lesion: Yes, Previously treated lesion: No Pre Stenosis: 99 % Pre intervention LUIS MIGUEL flow: 3 PROCEDURE: Drug Eluting Stent with pre and post dilatation Post Stenosis: 0 % Post intervention LUIS MIGUEL flow: 3 Lesion Devices: LawDecktronic 6 Fr JR4.0 100cm Guide Catheter Suresh .014 BMW [place] Straight 190cm Rich Sci EMERGE MR 1.50x15 BALL[place] Cardinal 6 Fr AR2 100cm Guide Catheter Rich Sci EMERGE OTW 1.50x15 BALL[place]ON Rich Sci EMERGE MR 2.00x15 BALLOON Rich Sci Synergy MR JANIS 3.00x20 Rich Sci NC EMERGE MR 3.00x12 BALLOON COMPLICATIONS No Complications PROCEDURE MEDICATIONS Versed 1 mg IV Fentanyl 50 mcg IV Oxygen: 2 L/min via nasal cannula Heparin given IA 05/11/2020 13:30:54 Heparin 6000 unit(s) IV 05/11/2020 13:53:02 Heparin 2000 unit(s) IV 05/11/2020 14:29:42 Nitro 200 mcg IC 05/11/2020 14:31:26 Verapamil 2.5mg, Ntg 100mcgs, 2000 units of Heparin given IA 05/11/2020 13:30:54 SUMMARY OF HEMODYNAMIC DATA Time AIR REST ECG 13:01:57 AO 131/87 (107) SA 13:32:39 LV 153/-5, 26 13:43:12 LV 153/-4, 24 13:43:18 LV 169/-2, 22 13:44:11 LV 174/0, 28 13:44:26 LVp 182/0, 33 13:44:30 AOp 150/77 (112) 13:44:35 Signed By Rachael Franz MD On 05/11/2020 14:58:27 Rachael Franz MD
--- NOTE | 2020-05-11 15:00 | EKG12_ITS ---
Test Reason : Blood Pressure : / mmHG Vent. Rate : 071 BPM Atrial Rate : 071 BPM P-R Int : 168 ms QRS Dur : 100 ms QT Int : 376 ms P-R-T Axes : 047 -05 -55 degrees QTc Int : 408 ms Normal sinus rhythm T wave abnormality, consider inferolateral ischemia Abnormal ECG When compared with ECG of 11-MAY-2020 06:03, MANUAL COMPARISON REQUIRED, DATA IS UNCONFIRMED Confirmed by DREAD NAVAS, DEBBIE ([id number]), editor publications ULISES BELLO ([id number]) on 05/15/2020 11:17:56 AM Referred By: LIZBET Confirmed By:DEBBIE CANADA MD
[2020-05-11 15:16] LABS: ACT Activated Clotting Time 224 sec (74-137)
--- NOTE | 2020-05-11 15:41 | CRPHASE1_ITS ---
Patient Communication PHII Cardiac Rehab Discussed with Patient:: Yes Guide to Cardiac Rehab Given to Patient:: Yes Cardiac Rehab Facility Choice List Given to Patient:: Yes Choice Program [facility] CR PHII:: Communication Given to CR, Refer to [facility] Fertilizer Supervisor:: Asher Franz Refer Phase II Cardiac Rehab:: Yes - DO OCCUR AFTER DISCHARGE Sessions:: 36 sessions - 3 days/wk, 12 weeks Risk Factors/Lifestyle Laboratory Values: Cardiac Rehab Phase I Labs Triglycerides 103 mg/dL (-199) 05/11/20 05:15 Cholesterol 269 mg/dL (200) H 05/11/20 05:15 LDL Cholesterol 196 mg/dL (0-130) H 05/11/20 05:15 HDL Cholesterol 52 mg/dL (40-) 05/11/20 05:15 Cardiac Rehabilitation Info Cardiac Rehabilitation Program Information: Cardiac Rehabilitation is important for patients like you who are recovering from a heart problem. Cardiac rehabilitation programs are recognized as integral to the continued care of the patient with coronary heart disease. The cardiac rehabilitation program is designed to optimize a patient's physical, psychological, and social functioning. Health career services manager work in cardiac rehabilitation programs and assist you with getting the treatments you need to get stronger and healthier - like exercise, healthy eating habits, and med ications. Cardiac rehabilitation has been show to help people with heart problems live longer and have better life enjoyment than people who do not go to cardiac rehabilitation. Please contact the Cardiac Rehabilitation Program at [facility] at in two weeks if you have not heard from them.
--- NOTE | 2020-05-11 15:42 | CRPH1.INSTRU ---
General Education CAD and cardiac anatomy and function:: Patient communicates acknowledgment Explanation of diagnoses and procedures:: Patient communicates acknowledgment Sign/Symptoms of OK:: Patient communicates acknowledgment Antiplatelet therapy: Patient communicates acknowledgment Proper use of NTG-SL: Patient communicates acknowledgment Emergency procedures and activation of EMS: Patient communicates acknowledgment Compliance of all prescribed medications: Patient communicates acknowledgment Dyslipidemia Patient Dyslipidemia Risk Factors Are:: Total Cholesterol, Triglycerides, HDL, LDL Recommendations Include:: Lipid profile provided, Reviewed NCEP/ATP guidelines, Therapeutic Lifestyle Change dietary guidelines Dyslipidemia Response Code:: Patient communicates acknowledgment Hypertension Patient Hypertension Risk Factors Are:: No documented hx of HTN
[2020-05-11] MEDS: TICAGRELOR 90 MG TABLET PO (22:25)
[2020-05-11] MEDS: Atorvastatin Calcium 20 MG Tablet PO (22:25)
[2020-05-11] MEDS: Metoprolol Tartrate 25 MG Tablet PO (22:25)
[2020-05-11] MEDS: Pravastatin 20 MG Tablet PO (22:25)
[2020-05-12] VITALS (7 sets, daily range): BP systolic 113–124; BP diastolic 69–85; PULSE 59–72; RESP 16; TEMP 36.4–36.6; O2SAT 96–98
--- NOTE | 2020-05-12 05:55 | EKG12_ITS ---
Test Reason : AM EKG Blood Pressure : / mmHG Vent. Rate : 066 BPM Atrial Rate : 066 BPM P-R Int : 162 ms QRS Dur : 096 ms QT Int : 396 ms P-R-T Axes : 055 -10 -58 degrees QTc Int : 415 ms Normal sinus rhythm T wave abnormality, consider inferolateral ischemia Abnormal ECG When compared with ECG of 11-MAY-2020 15:15, MANUAL COMPARISON REQUIRED, DATA IS UNCONFIRMED Confirmed by DREAD NAVAS, DEBBIE ([id number]), telegraph editor ULISES BELLO ([id number]) on 05/15/2020 11:03:23 AM Referred By: DR JAIME Confirmed By:DEBBIE CANADA MD
[2020-05-12 07:25] LABS: Hematocrit 46.9 % (40-54); Hemoglobin 15.5 g/dL (13.0-16.5); Mean Corpuscular Hgb 30.1 pg (27.0-32.0); Mean Corpuscular Volume 91.1 fL (80-94); Mean Platelet Vol. 8.5 fl (6.2-12.0); Platelet Count 303 K/mm3 (150-450); RBC Distribution Width CV 12.4 % (11.6-14.6); RBC Distribution Width SD 41.3 fl (35.1-43.9); Red Blood Count 5.15 M/mm3 (4.6-6.2); White Blood Count 10.2 K/mm3 (4.4-11.0)
[2020-05-12 07:38] LABS: ALB/GLOB Ratio 0.9 RATIO (0.9-2.4); AST(SGOT) 13 U/L (15-37); Alanine Aminotransfer ALT/SGPT 25 U/L (16-61); Albumin, Serum 3.7 g/dL (3.2-5.0); Alkaline Phosphatase 83 U/L (45-117); Anion Gap 6 (5-15); BUN 16 mg/dL (7-18); BUN/Creat Ratio 15.5 RATIO (10-20); Calcium,Total 9.2 mg/dL (8.5-10.1); Chloride 104 mmol/L (98-107); Creatinine, Serum 1.03 mg/dL (0.70-1.30); EST Glomerular Filtration Rate 81 mL/min (>60); Est Glom Filt Rate - Afr Amer 98 mL/min (>60); Glucose 94 mg/dL (74-106); Protein, Total 7.7 g/dL (6.4-8.2); Sodium Level 139 mmol/L (136-145)
[2020-05-12] MEDS: Aspirin E.C. 81 MG Tablet PO (08:09)
[2020-05-12] MEDS: Metoprolol Tartrate 25 MG Tablet PO (09:47)
[2020-05-12] MEDS: TICAGRELOR 90 MG TABLET PO (09:47)
[2020-05-12] MEDS: Enoxaparin 40 MG/0.4 ML Syringe SC (09:48)
--- NOTE | 2020-05-12 10:28 | PN.CARD_ITS ---
Subjectve: The patient states he feels better today than he has in a long time. He has no new acute concerns. Objective: Vital Signs Temp Pulse Resp BP Pulse Ox 97.5 F L 72 16 124/85 H 97 05/12/20 09:45 05/12/20 09:47 05/12/20 09:45 05/12/20 09:45 05/12/20 09:45 Oxygen Delivery Method Room Air Weight: 165 lb 12.602 oz Body Mass Index (BMI) 24.5 Intake and Output for Last 24 Hours 05/10/20 05/11/20 05/12/20 23:59 23:59 23:59 Intake Total 475 / 475 1000 / 1100 100 / 100 Output Total 2900 / 2900 700 / 700 Balance 475 / 475 -1900 / -1800 -600 / -600 General: Awake, Alert, Oriented x 3, Cooperative, No Acute Distress HEENT: Atraumatic, Normocephalic, PERRL, EOMI, Sclera Non Icteric Neck: Supple, Good ROM, No JVD Lungs: Clear to auscultation Cardiovascular: Regular Rhythm, Premature Ectopic Beats, Normal S1, Normal S2 Vascular: No Carotid Bruits, Normal Radial Pulses Abdomen: Bowel Sounds Present, Soft, Non Tender Extremities: No edema Neurological: No Focal Motor or Sensory Deficit Psych/Mental Status: Appropriate 05/12/20 06:03: WBC 10.2, RBC 5.15, Hgb 15.5, Hct 46.9, MCV 91.1, MCH 30.1, MCHC 33.0, Plt Count 303, MPV 8.5 05/12/20 06:03: Sodium 139, Potassium 4.0, Chloride 104, Carbon Dioxide 29.0, Anion Gap 6, BUN 16, Creatinine 1.03, Est GFR (MDRD) Af Amer 98, Est GFR (MDRD) Non-Af 81, BUN/Creatinine Ratio 15.5, Glucose 94, Calcium 9.2, Total Bilirubin 0.90 Rhythm: Sinus rhythm; occasional PVC EKG: Sinus rhythm; ST/T wave abnormality compatible with myocardial ischemia- inferolateral; compared to the previous ECGs these findings may be somewhat less prominent ECHO: Pending Cardiac Cath: 05-11-2020 CONCLUSIONS Elevated Left Ventricular End Diastolic Pressure Segmented LV systolic dysfunction- Mild LVEF: by LV gram 50 % [place] Multivessel CAD RECOMMENDATIONS Risk factor modification Medical therapy Referred for immediate PCI DESCRIPTION OF PROCEDURE The patient arrived to the procedure lab. The risks and benefits of the procedure as well as a full description of our services here and current unavailability of surgical backup were fully explained to the patient and/or their significant other prior to the catheterization. The Timeout was completed, verifying the correct patient and procedure. The patient's procedural site was prepped and draped in the usual fashion. Local anesthetic was given subcutaneously to right radial region with Lidocaine 2%. Using a modified Seldinger technique, arterial access was obtained via the right radial artery, a 6Fr sheath was inserted. Left Coronary Artery selective angiography was performed in multiple views using a 5 Fr. 4.0 [place] catheter. Right Coronary Artery selective angiography was then performed in multiple views using a 5 Fr. 4.0 [place] catheter. Left Ventriculography was performed in SYED projection using a 5 Fr. Pigtail catheter. LV to AO pullback pressures were then recorded.The arterial sheath was pulled and a TR Band was applied for hemostasis CORONARY ANGIOGRAPHY DOMINANCE: Right Dominant LEFT HEART ASSESSMENT Left Ventricular Ejection Fraction: by LV Gram 50 % Inferior Mid Hypokinesis Elevated Left Ventricular End Diastolic Pressure LVEDP: 24 mmHg LEFT MAIN: Angiographically normal LEFT ANTERIOR DESCENDING ARTERY: PROX LAD: Moderate calcification, 50 - 75 % Stenosis MID LAD: 50 - 75 % Stenosis CIRCUMFLEX ARTERY: Mild luminal irregularities RIGHT CORONARY ARTERY: Mild luminal irregularities MID RCA: Long: Diffuse: 90 % Stenosis AORTIC ROOT: Angiographically normal PCI: 05-11-2020 CONCLUSIONS Successful JANIS to mRCA Medical Necessity - Tobacco Use Smoking Status: Never smoker Tobacco Use: Non-smoker Assessment/Plan 1. CAD s/p RCA PCI/JANIS The patient has undergone further evaluation with diagnostic cardiac catheterization. He was found to have angiographically significant appearing CAD. The culprit vessel appeared to be the RCA. He subsequently underwent RCA PCI/JANIS. He will need to continue medical therapy. It was emphasized to the patient with respect to his medical therapy that he needs to continue his antiplatelet therapy with aspirin and his Brilinta in addition to his other medications without interruption/discontinuation in order to allow his PCI site to mature and minimize the risk of in-stent restenosis, etc. Over time his coronary status, based upon concerns of his LAD distribution, will need to be followed as well from a history standpoint as well as appropriate objective studies as to whether or not he will need any form of revascularization either percutaneous or surgical based in the future. 2. Non-STEMI The patient has abnormal cardiac enzymes and abnormal ECG which is raise concerns of a non-STEMI. This does appear to be related to underlying CAD. He will need to continue medical therapy and outpatient cardiovascular follow- up. 3. Hyperlipidemia He does have hyperlipidemia. He states he is intolerant to statins secondary to myalgias. He is willing to reattempt statin therapy at a low dose. Overall, the patient will continue medical management. He has been asked to hav e outpatient cardiovascular follow-up. He will report back to the hospital in the interim as needed. Comment: The above was discussed with the patient and the [facility] staff. This note was generated using a voice recognition system and there may be incorrect words, spelling or punctuation that were not noted when reviewing the office note prior to saving.
--- NOTE | 2020-05-12 10:40 | CL.D_ITS ---
Patient Name: CALVIN ROWE Study Date: 05/11/2020 Performing: Abelardo Carcamo MD Ht: 69 inches 175 cm : 1970 Wt: 165.6 lbs 75 kg Age: 49 Gender: male BSA: 1.9 PROCEDURE(S) PERFORMED HA20-PTA/COR/LV WP23-GPO W OR WO PTCA, SINGLE CORONARY ARTERY CLINICAL PROFILE AND INDICATIONS Indications: Suspected CAD, ACS <= 24 hrs Heart Failure: None Angina Classification Anginal Classification w/in 2 Weeks: CCS III CAD Presentations: Non-STEMI. CONCLUSIONS Elevated Left Ventricular End Diastolic Pressure Segmented LV systolic dysfunction- Mild LVEF: by LV gram 50 % [place] Multivessel CAD RECOMMENDATIONS Risk factor modification Medical therapy Referred for immediate PCI DESCRIPTION OF PROCEDURE The patient arrived to the procedure lab. The risks and benefits of the procedure as well as a full d escription of our services here and current unavailability of surgical backup were fully explained to the patient and/or their significant other prior to the catheterization. The Timeout was completed, verifying the correct patient and procedure. The patient's procedural site was prepped and draped in the usual fashion. Local anesthetic was given subcutaneously to right radial region with Lidocaine 2% . Using a modified Seldinger technique, arterial access was obtained via the right radial artery, a 6 Fr sheath was inserted. Left Coronary Artery selective angiography was performed in multiple views u sing a 5 Fr. 4.0 [place] catheter. Right Coronary Artery selective angiography was then performed in mu ltiple views using a 5 Fr. 4.0 [place] catheter. Left Ventriculography was performed in SYED projection using a 5 Fr. Pigtail catheter. LV to AO pullback pressures were then recorded.The arterial sheath was pulled and a TR Band was applied for hemostasis CORONARY ANGIOGRAPHY DOMINANCE: Right Dominant LEFT HEART ASSESSMENT Left Ventricular Ejection Fraction: by LV Gram 50 % Inferior Mid Hypokinesis Elevated Left Ventricular End Diastolic Pressure LVEDP: 24 mmHg LEFT MAIN: Angiographically normal LEFT ANTERIOR DESCENDING ARTERY: PROX LAD: Moderate calcification, 50 - 75 % Stenosis MID LAD: 50 - 75 % Stenosis CIRCUMFLEX ARTERY: Mild luminal irregularities RIGHT CORONARY ARTERY: Mild luminal irregularities MID RCA: Long: Diffuse: 90 % Stenosis AORTIC ROOT: Angiographically normal COMPLICATIONS No Complications PROCEDURE MEDICATIONS Versed 1 mg IV Fentanyl 50 mcg IV Oxygen: 2 L/min via nasal cannula Heparin given IA 05/11/2020 13:30:54 Heparin 6000 unit(s) IV 05/11/2020 13:53:02 Heparin 2000 unit(s) IV 05/11/2020 14:29:42 Nitro 200 mcg IC 05/11/2020 14:31:26 Verapamil 2.5mg, Ntg 100mcgs, 2000 units of Heparin given IA 05/11/2020 13:30:54 SUMMARY OF HEMODYNAMIC DATA Time AIR REST ECG 13:01:57 AO 131/87 (107) SA 13:32:39 LV 153/-5, 26 13:43:12 LV 153/-4, 24 13:43:18 LV 169/-2, 22 13:44:11 LV 174/0, 28 13:44:26 LVp 182/0, 33 13:44:30 AOp 150/77 (112) 13:44:35 Signed By Abelardo Carcamo MD On 05/12/2020 10:39:46 Abelardo Carcamo MD
--- NOTE | 2020-05-12 11:56 | DCINST_ITS ---
- Discharge Diagnoses Current Active Problems: Current Active and Chronic Problems (Last Updated 05/11/20 @ 15:07 by Brittany Bentley) Chest pain (Acute) Hyperlipidemia (Chronic) NSTEMI (non-ST elevated myocardial infarction) (Acute) You will use the following diet at home:: Cardiac Discharge Activity: Return to Normal Activity Call your doctor if you observe: Shortness of breath, Dizziness, Fainting spells, Chest pain Allergies/Adverse Reactions: Allergies acetaminophen [From Tylenol] Adverse Reaction (Verified 05/10/20 18:31) Laryngospasms Medications to take at Discharge Aspirin E.C. [Ecotrin] 81 mg PO DAILY@0800 #90 tab 05/12/20 Metoprolol Tartrate [Lopressor (beta lucina)] 25 mg PO BID #180 tab 05/12/20 Pravastatin [Pravachol] 20 mg PO QHS #90 tab 05/12/20 Ticagrelor [Brilinta] 90 mg PO BID #180 tab 05/12/20 The following prescriptions were given: Ticagrelor [Brilinta] 90 mg PO BID #180 tab Transmission Status: Pending to [id number] Aspirin E.C. [Ecotrin] 81 mg PO DAILY@0800 #90 tab Transmission Status: Pending to [id number] Metoprolol Tartrate [Lopressor (beta lucina)] 25 mg PO BID #180 tab Transmission Status: Pending to [id number] Pravastatin [Pravachol] 20 mg PO QHS #90 tab Transmission Status: Pending to [id number] Primary Care Physician: Albino Almaguer DO [Primary Care Provider] - Please follow up with your Primary Care Physician in: 1 Week Test Results: Test results from this visit will be discussed in further detail at your follow- up appointment, if applicable. Please Follow Up With: Abelardo Carcamo MD - Cardiology When: 2 Weeks Proposed Discharge Date: 05/12/20
--- NOTE | 2020-05-12 12:03 | PCM.DC.SUM ---
<TylerSamantha MANAGER STRATEGIC - Last Filed: 05/12/20 12:08> Discharge Date and Diagnosis - Problem List Patient Problems: Active and Suspected Problems (Last Updated 05/11/20 @ 15:07 by Brittany Bentley) Chest pain (Acute) NSTEMI (non-ST elevated myocardial infarction) (Acute) Date of Admission: 05/10/20 Date of Discharge: 05/12/20 - Primary Discharge Diagnosis Acute Problems: Active Problems (Last Updated 05/11/20 @ 15:07 by Brittany Bentley) 1. CAD status post PCI to RCA 2. NSTEMI 3. Hyperlipidemia - Secondary Discharge Diagnosis Chronic Problems: Chronic Problems (Last Updated 05/11/20 @ 15:07 by Brittany Bentley) S/P coronary artery stent placement (Chronic ~05/11/20) Successful JANIS to mRCA 05/11/20 Atherosclerotic heart disease of [place] coronary artery without angina pectoris (Chronic) Hyperlipidemia (Chronic) Hospital Course and Treatment Imaging Results: Diagnostic Data Chest X-Ray 05/10/20 16:14 IMPRESSION: Normal x-ray examination of the chest. Electronically Signed: Araceli Mueller MD at 17:17 EST Tel , Service support , Dr. Carcamo-Cardiology Operations: None Procedures: 2-D Echocardiogram, Cardiac catheterization Summary of Care Provided: The patient is a 49 year old M admitted 05/10/2020 due to chest pain. 1. CAD status post PCI to RCA-continue aspirin, statin, Brilinta, beta-lucina. Echocardiogram pending and will be reviewed by cardiology prior to discharge. Follow-up with cardiology in 2 weeks. 2. NSTEMI-management per above. 3. Hyperlipidemia-history of intolerance to statins. Agreeable to reattempt low-dose statin. General: Alert, Oriented x3, Cooperative HEENT: Atraumatic, PERRLA, EOMI, Normocephalic Neck: Supple, No JVD, Negative Carotid Bruits Lungs: Clear to auscultation, Normal air movement Cardiovascular: Regular rate, No murmurs Abdomen: Bowel Sounds Present, Soft, Non Tender, Non-Distended Extremities: No clubbing, No cyanosis, No edema, Capillary Refill Less than 3 Seconds Skin: No rashes, No breakdown Musculoskeletal: No Tenderness to Palpation of Joints or Extremities Neurological: Cranial nerves II-XII grossly intact, Neuro grossly intact Psych/Mental Status: Normal Affect, Appropriate Patient seen and examined prior to discharge. Physical assessment as noted above. Patient is stable for discharge with follow up recommendations as noted above. This patient was seen by SOURAV Mercedes under the supervision of Dr. Dejesus. Patient Problems: Active and Suspected Problems (Last Updated 05/11/20 @ 15:07 by Brittany Bentley) Chest pain (Acute) NSTEMI (non-ST elevated myocardial infarction) (Acute) - Physical Exam Vitals/I&O's: Vital Signs Temp Pulse Resp BP Pulse Ox 97.5 F L 72 16 124/85 H 97 05/12/20 09:45 05/12/20 09:47 05/12/20 09:45 05/12/20 09:45 05/12/20 09:45 Oxygen Delivery Method Room Air Weight: 165 lb 12.602 oz Body Mass Index (BMI) 24.5 Intake and Output for Last 24 Hours 05/10/20 05/11/20 05/12/20 23:59 23:59 23:59 Intake Total 475 / 475 1000 / 1100 600 / 600 Output Total 2900 / 2900 700 / 700 Balance 475 / 475 -1900 / -1800 -100 / -100 Laboratory Results 05/11/20 14:25: Activated Clotting Time 224 H 05/12/20 06:03: WBC 10.2, RBC 5.15, Hgb 15.5, Hct 46.9, MCV 91.1, MCH 30.1, MCHC 33.0, RDW Std Deviation 41.3, RDW Coeff of Sayda 12.4, Plt Count 303, MPV 8.5 05/12/20 06:03: Sodium 139, Potassium 4.0, Chloride 104, Carbon Dioxide 29.0, Anion Gap 6, BUN 16, Creatinine 1.03, Estim Creat Clear Calc 85.80, Est GFR (MDRD) Af Amer 98, Est GFR (MDRD) Non-Af 81, BUN/Creatinine Ratio 15.5, Glucose 94, Calcium 9.2, Total Bilirubin 0.90, AST 13 L, ALT 25, Alkaline Phosphatase 83, Total Protein 7.7, Albumin 3.7, Globulin 4.0, Albumin/Globulin Ratio 0.9 Current Medications Aspirin (Aspirin E.C. 81 Mg Tablet) 81 mg PO DAILY@0800 [facility] Last Admin: 05/12/20 08:09 Dose: 81 mg Documented by: Atropine Sulfate (Atropine Sulfate 1 Mg/10 Ml Syringe) 0.5 mg IV UD PRN PRN Reason: HR <50 bpm Enoxaparin Sodium (Enoxaparin 40 Mg/0.4 Ml Syringe) 40 mg SC DAILY [facility] Last Admin: 05/12/20 09:48 Dose: 40 mg Documented by: Heparin Sodium (Beef Lung) (Heparin Lock 500 Unit/5 Ml In 10 Ml Syringe) 500 unit IV UD PRN PRN Reason: HEPARIN FLUSH Sodium Chloride () 1,000 mls @ 0 mls/hr IV .Q0M [facility] Labetalol HCl (Labetalol (Prefilled) 20 Mg/4 Ml) 5 mg IV X1 PRN PRN Reason: SBP >160 when pulling sheath Stop: 05/13/20 14:50 Metoprolol Tartrate (Metoprolol Tartrate 25 Mg Tablet) 25 mg PO BID [facility] Last Admin: 05/12/20 09:47 Dose: 25 mg Documented by: Pravastatin Sodium (Pravastatin 20 Mg Tablet) 20 mg PO QHS [facility] Last Admin: 05/11/20 22:25 Dose: 20 mg Documented by: Sodium Chloride (0.9% Saline Lock 10 Ml Syringe) 10 - 40 ml IV UD PRN PRN Reason: SALINE FLUSH Last Admin: 05/11/20 12:47 Dose: 10 ml Documented by: Sodium Chloride (0.9% Normal Saline 500 Ml Iv.Soln.) 500 ml IV BOLUS PRN PRN Reason: VASO-VAGAL PROTOCOL Ticagrelor (Ticagrelor 90 Mg Tablet) 90 mg PO BID [facility] Last Admin: 05/12/20 09:47 Dose: 90 mg Documented by: Discharge Diet: Low fat/ Low Cholesterol Discharge Activity: Return to Normal Activity Call your doctor if you observe: Shortness of breath, Dizziness, Fainting spells, Chest pain Home Medications: Medications to take at Discharge Aspirin E.C. [Ecotrin] 81 mg PO DAILY@0800 #90 tab 05/12/20 Metoprolol Tartrate [Lopressor (beta lucina)] 25 mg PO BID #180 tab 05/12/20 Pravastatin [Pravachol] 20 mg PO QHS #90 tab 05/12/20 Ticagrelor [Brilinta] 90 mg PO BID #180 tab 05/12/20 Following Prescriptions Were Given to Patient: Ticagrelor [Brilinta] 90 mg PO BID #180 tab [id number] Aspirin E.C. [Ecotrin] 81 mg PO DAILY@0800 #90 tab Transmission Status: [id number] Metoprolol Tartrate [Lopressor (beta lucina)] 25 mg PO BID #180 tab Transmission Status: [id number] Pravastatin [Pravachol] 20 mg PO QHS #90 tab Transmission Status: [id number] Primary Care Physician: Albino Almaguer DO [Primary Care Provider] - Please follow up with your Primary Care Physician in: 1 Week Please Follow Up With: Abelardo Carcamo MD - Cardiology When: 2 Weeks Disposition: Home Minutes spent on discharge:: 35 Patient Condition:: Stable Medical Necessity - Tobacco Use Smoking Status: Never smoker Tobacco Use: Non-smoker Meaningful Use Info Meaningful Use Diagnoses (Choose all that apply): None applicable <Wali Dejesus - Last Filed: 05/12/20 12:53> Discharge Date and Diagnosis - Primary Discharge Diagnosis Acute Problems: Active Problems (Last Updated 05/11/20 @ 15:07 by Brittany Bentley) Chest pain (Acute) NSTEMI (non-ST elevated myocardial infarction) (Acute) - Secondary Discharge Diagnosis Chronic Problems: Chronic Problems (Last Updated 05/11/20 @ 15:07 by Brittany Bentley) S/P coronary artery stent placement (Chronic ~05/11/20) Successful JANIS to mRCA 05/11/20 Atherosclerotic heart disease of [place] coronary artery without angina pectoris (Chronic) Hyperlipidemia (Chronic) Hospital Course and Treatment Summary of Care Provided: This patient was seen in conjunction with SOURAV Mercedes . I have independently interviewed and examined the patient and reviewed pertinent historical, laboratory, and other data. Please refer to SOURAV Mercedes note for details of this patient's presentation, findings, and recommendations. I have reviewed SOURAV Mercedes note and concur with documented findings. In brief, patient is a 49-year-old female admitted with chest pain with abnormal troponin. Patient underwent a nuclear stress test which was reported to be abnormal with evidence of myocardial ischemia in the mid inferior segment. Cardiology subsequently consulted patient underwent left heart catheterization with PCI with JANIS to an RCA lesion. Hospital course: As documented above - Physical Exam Vitals/I&O's: Vital Signs Temp Pulse Resp BP Pulse Ox 97.5 F L 72 16 124/85 H 97 05/12/20 09:45 05/12/20 09:47 05/12/20 09:45 05/12/20 09:45 05/12/20 09:45 Oxygen Delivery Method Room Air Weight: 75.2 kg Body Mass Index (BMI) 24.5 Intake and Output for Last 24 Hours 05/10/20 05/11/20 05/12/20 23:59 23:59 23:59 Intake Total 475 / 475 1000 / 1100 600 / 600 Output Total 2900 / 2900 700 / 700 Balance 475 / 475 -1900 / -1800 -100 / -100 Laboratory Results 05/11/20 14:25: Activated Clotting Time 224 H 05/12/20 06:03: WBC 10.2, RBC 5.15, Hgb 15.5, Hct 46.9, MCV 91.1, MCH 30.1, MCHC 33.0, RDW Std Deviation 41.3, RDW Coeff of Sayda 12.4, Plt Count 303, MPV 8.5 05/12/20 06:03: Sodium 139, Potassium 4.0, Chloride 104, Carbon Dioxide 29.0, Anion Gap 6, BUN 16, Creatinine 1.03, Estim Creat Clear Calc 85.80, Est GFR (MDRD) Af Amer 98, Est GFR (MDRD) Non-Af 81, BUN/Creatinine Ratio 15.5, Glucose 94, Calcium 9.2, Total Bilirubin 0.90, AST 13 L, ALT 25, Alkaline Phosphatase 83, Total Protein 7.7, Albumin 3.7, Globulin 4.0, Albumin/Globulin Ratio 0.9 Current Medications Aspirin (Aspirin E.C. 81 Mg Tablet) 81 mg PO DAILY@0800 [facility] Last Admin: 05/12/20 08:09 Dose: 81 mg Documented by: Atropine Sulfate (Atropine Sulfate 1 Mg/10 Ml Syringe) 0.5 mg IV UD PRN PRN Reason: HR <50 bpm Enoxaparin Sodium (Enoxaparin 40 Mg/0.4 Ml Syringe) 40 mg SC DAILY [facility] Last Admin: 05/12/20 09:48 Dose: 40 mg Documented by: Heparin Sodium (Beef Lung) (Heparin Lock 500 Unit/5 Ml In 10 Ml Syringe) 500 unit IV UD PRN PRN Reason: HEPARIN FLUSH Sodium Chloride () 1,000 mls @ 0 mls/hr IV .Q0M [facility] Labetalol HCl (Labetalol (Prefilled) 20 Mg/4 Ml) 5 mg IV X1 PRN PRN Reason: SBP >160 when pulling sheath Stop: 05/13/20 14:50 Metoprolol Tartrate (Metoprolol Tartrate 25 Mg Tablet) 25 mg PO BID [facility] Last Admin: 05/12/20 09:47 Dose: 25 mg Documented by: Pravastatin Sodium (Pravastatin 20 Mg Tablet) 20 mg PO QHS [facility] Last Admin: 05/11/20 22:25 Dose: 20 mg Documented by: Sodium Chloride (0.9% Saline Lock 10 Ml Syringe) 10 - 40 ml IV UD PRN PRN Reason: SALINE FLUSH Last Admin: 05/11/20 12:47 Dose: 10 ml Documented by: Sodium Chloride (0.9% Normal Saline 500 Ml Iv.Soln.) 500 ml IV BOLUS PRN PRN Reason: VASO-VAGAL PROTOCOL Ticagrelor (Ticagrelor 90 Mg Tablet) 90 mg PO BID [facility] Last Admin: 05/12/20 09:47 Dose: 90 mg Documented by: Inpatient E&M: [id number] Disch Hosp
== END 2020-05-12 11:56 | disposition home or self-care (01) ==
LOC: ED 16:49 → PCU 17:36
PROVIDERS: Internal Medicine Cardiovascular Disease; Admitting Provider Nurse Practitioner Family; Emergency Provider Emergency Medicine; PCP Family Medicine; Visit Provider Internal Medicine
DX: I21.4 Non-ST elevation (NSTEMI) myocardial infarction (principal); Z87.891 Personal history of nicotine dependence; E78.5 Hyperlipidemia, unspecified; Z82.49 Family history of ischemic heart disease and other diseases of the circulatory system; Z79.82 Long term (current) use of aspirin; R03.0 Elevated blood-pressure reading, without diagnosis of hypertension; I25.10 Atherosclerotic heart disease of native coronary artery without angina pectoris
CPT/HCPCS: 36415; 71045; 78452; 80048; 80053; 80061; 84484; 85025; 85027; 85347; 92928; 93005; 93017; 93306; 93458; 96360; 96361; 96372; 99152; 99153; 99218; 99285; A9500; C1887; J7030; Q9967; A4216; C1725; C1769; C1874; C1894; C9600; G0378

== ENCOUNTER 2021-08-20 06:56 | Outpatient (CLI) | payer SELFPAY, OTHER ==
--- NOTE | 2021-08-20 20:04 | STRESSREP_ITS ---
Stress Test Report Date: 08-20-2021 Procedure: Exercise tolerance test/imaging study Indications: Chest pain; CAD; status post PCI Consent: Per the patient Procedure: The patient exercised on a Jono protocol for 10 minutes and 25 seconds completing Stage III and 1 minute and 25 seconds of Stage IV achieving a peak heart rate of 171 bpm (101% predicted maximal heart rate) with a peak blood pressure 184/80 mmHg and a peak MET capacity of 13 METs. The baseline ECG demonstrated normal sinus rhythm; nonspecific T wave abnormality. The peak exercise ECG demonstrated somatic/motion artifact with the appearance of, during stress, approximately [address] segment depression in leads II, III, and aVF and in early recovery approximately 0.[address] segment depression in lead V4 through V6. There were occasional PVCs during exercise and recovery; rare ventricular couplets during exercise; an isolated ventricular triplet/quadruplet during exercise. The functional capacity was considered good. There was no complaint of chest discomfort during exercise or recovery. The examination was discontinued secondary to dyspnea. Impression: 1. Technically adequate (percent predicted maximal heart rate greater than 85%) exercise tolerance test 2. Peak exercise ECG with somatic/motion artifact with the appearance of, during stress, approximately [address] segment depression in leads II, III, and aVF and in early recovery approximately 0.[address] segment depression in lead V4 through V6 3. There were occasional PVCs during exercise and recovery; rare ventricular couplets during exercise; an isolated ventricular triplet/quadruplet during exercise 4. Nuclear images pending Myocardial perfusion imaging study: Technique: The patient was injected with 11.3 mCi of technetium 99m Cardiolite and subsequently rest SPECT Cardiolite nuclear imaging was obtained in the horizontal long, vertical long, and short axis views. The patient exercised on a Jono protocol for 10 minutes and 25 seconds completing Stage III and 1 minute and 25 seconds of Stage IV achieving a peak heart rate of 171 bpm (101% pr edicted maximal heart rate) with a peak blood pressure 184/80 mmHg and a peak MET capacity of 13 METs. The patient was injected with 33.7 mCi of technetium 99m Cardiolite and subsequently stress SPECT Cardiolite nuclear imaging was obtained in the horizontal long, vertical long, and short axis views. A gated Cardiolite study at peak stress was obtained. Interpretation: Rest and stress SPECT Cardiolite nuclear imaging status post realignment, normalization, and attenuation correction, demonstrates the appearance of relative uniform tracer uptake and myocardial perfusion appearing within normal limits. There is end systolic thickening and brightening. The gated Cardiolite study demonstrates myocardial thickening and inward wall motion. The reported LVEF is 61%. Impression: 1. Rest and stress SPECT Cardiolite nuclear imaging demonstrate relative uniform tracer uptake and myocardial perfusion appearing within normal limits. 2. The gated Cardiolite study reports an LVEF of 61%. This note was generated with [employer] software. It may contain incorrect words, spelling, and punctuation that were not noted in checking the note before signing.
== END 2021-08-20 23:59 | disposition home or self-care (01) ==
PROVIDERS: PCP Family Medicine; Referring Provider Internal Medicine Cardiovascular Disease; Visit Provider Internal Medicine Cardiovascular Disease
DX: I25.10 Atherosclerotic heart disease of native coronary artery without angina pectoris (principal); R07.9 Chest pain, unspecified; E78.5 Hyperlipidemia, unspecified; Z95.5 Presence of coronary angioplasty implant and graft
CPT/HCPCS: 78452; 93017; A9500; A4216

== ENCOUNTER 2021-09-17 08:31 | Day surgery (SDC) | payer SELFPAY, OTHER ==
--- NOTE | 2021-09-06 16:10 | RAD_ITS ---
EXAM: XR CHEST, 2 VIEWS CLINICAL INDICATION: Cardiac Catheterization TECHNIQUE: Frontal and lateral views of the chest. This report was created using [employer] report generation technology. COMPARISON: 05/10/2020. FINDINGS: LUNGS AND PLEURAL SPACES: Unremarkable. No consolidation or edema. No pneumothorax. No effusion. HEART: Unremarkable. Cardiac silhouette not enlarged. MEDIASTINUM: Central airways and mediastinal contour are unremarkable. BONES/JOINTS: Unremarkable. SOFT TISSUES: Unremarkable. RAD/Chest PA and Lateral IMPRESSION: No radiographic evidence of acute cardiopulmonary disease. Electronically Signed: Arron Mascorro MD at 4:13 EST ,
[2021-09-06 16:59] LABS: Absolute Lymphocyte Count 2.29 X10^3/uL (0.83-4.51); Absolute Neutrophil Count 3.9 X10^3/uL (2.0-7.7); Basophil# 0.05 X10^3/uL; Basophil% 0.7 % (0-1); Eosinophil# 0.07 X10^3/uL; Hematocrit 45.7 % (40-54); Hemoglobin 15.5 g/dL (13.0-16.5); Lymphocyte # 2.29 X10^3/ul (0.83-4.51); Lymphocyte % 32.3 % (19-41); Mean Corp Hgb Conc 33.9 g/dL (32-36); Mean Corpuscular Hgb 29.9 pg (27.0-32.0); Mean Corpuscular Volume 88.2 fL (80-94); Mean Platelet Vol. 8.4 fl (6.2-12.0); Monocyte# 0.74 X10^3/uL; Monocyte% 10.4 % (0-10); NRBC Flagged by Analyzer 0 % (0-5); Neutrophil # 3.92 X10^3/uL (2.7-7.7); Neutrophil % 55.3 % (47-70); Platelet Count 278 K/mm3 (150-450); RBC Distribution Width CV 12.1 % (11.6-14.6); RBC Distribution Width SD 39.3 fl (35.1-43.9); Red Blood Count 5.18 M/mm3 (4.6-6.2); White Blood Count 7.1 K/mm3 (4.4-11.0)
[2021-09-06 17:15] LABS: Partial Thromboplast Time 33.1 Seconds (24.1-36.2)
[2021-09-06 17:40] LABS: AST(SGOT) 20 U/L (15-37); Alanine Aminotransfer ALT/SGPT 30 U/L (16-61); Albumin, Serum 4.1 g/dL (3.2-5.0); Alkaline Phosphatase 69 U/L (45-117); Anion Gap 4 (5-15); BUN 19 mg/dL (7-18); BUN/Creat Ratio 18.3 RATIO (10-20); Bilirubin, Direct 0.13 mg/dL (0.00-0.30); Calcium,Total 9.7 mg/dL (8.5-10.1); Chloride 104 mmol/L (98-107); Cholesterol 305 mg/dL (200); Creatinine, Serum 1.04 mg/dL (0.70-1.30); EST Glomerular Filtration Rate 80 mL/min (>60); Est Glom Filt Rate - Afr Amer 96 mL/min (>60); Glucose 102 mg/dL (74-106); High Density Lipoprotein 55 mg/dL; Potassium 3.8 mmol/L (3.5-5.1); Protein, Total 8.1 g/dL (6.4-8.2); Sodium Level 138 mmol/L (136-145); Triglycerides 137 mg/dL; Very Low Density Lipoprotein 27 mg/dL (5-40)
[2021-09-16 10:43] VITALS: BMI 24.7
--- NOTE | 2021-09-16 19:22 | HP.PCM_ITS ---
History and Physical Date of Admission: 09/17/21 [facility] [address] [place] [address] [phone] OFFICE VISITDate of Service: 09/06/21 MR#:[id number]:[id number]: CALVIN ROWE JRep #:[id number] Provider: SOURAV Maldonado/Sex: 51/M Locati on:BMS.WHGStatus:Signed HPI HPI History of Present Illness Surgical H&P: Yes Details: This is a 51-year-old white male who presents today for outpatient cardiovascular visit. He has a history of underlying CAD, status post non-ST segment elevation [place] (May,), status post RCA PTCA/JANIS, and hyperlipidemia. He did have an ECG in the office today. He was noted to have sinus rhythm with nonspecific T wave abnormality. His previous noninvasive and invasive cardiovascular studies are noted below. He is accompanied by his . He denies any palpitations. He does have chest discomfort that is located left chest/pectoral area with radiation to his left arm. He states this occurs more at rest than activity. He states this pain can be brief or it can last for a few hours. He denies SOB, Orthopnea, and PND. He does not have bleeding issues; no blood in urine, stool or nosebleeds. He does notice a slight decrease in energy level. He denies myalgias, or claudication. He does not have edema, or sudden weight gain. He denies dizziness, lightheadedness, syncopal or near syncopal episodes, and headaches. Intake Vital Signs 09/06/21 15:19 Height 5 ft 9 in Weight: 168 lb BMI 24.7 BP 128/83 H Blood Pressure Location Lt brachial Position Sitting Respiration 18 Pulse 64 Pulse Source Monitor Pulse Oximetry (%) 95 Intake Visit Reasons: UPDATE H & P Digital Forensic Analyst Required: No Is patient in pain?: No Allergies acetaminophen [From Tylenol] Adverse Reaction (Verified 09/06/21 15:42) Laryngospasms Medications aspirin 81 mg tablet,delayed release 81 mg PO DAILY@0800 #90 tab 05/29/20 [Rx Confirmed 09/06/21] coenzyme Q10 200 mg capsule 200 mg PO DAILY 05/29/20 [History Confirmed 09/06/21] clopidogrel 75 mg tablet 75 mg PO DAILY #90 tab 06/05/21 [Rx Confirmed 09/06/21] metoprolol tartrate 25 mg tablet 25 mg PO BID #180 tab 07/08/21 [Rx Confirmed 09/06/21] FOR[facility]LY [facility] Medical History Atherosclerotic heart disease of [place] coronary artery without angina pectoris Presence of stent in coronary artery (~05/11/20) Surgical History Presence of coronary angioplasty implant and graft (~05/11/20) Social History Smoking Status: Never smoker alcohol intake: never substance use type: does not use ROS Const Const: Positive for fatigue; Negative for weakness, fever(s), headache(s), chills, frequent falls, weight gain or weight loss Eyes Eyes: Negative for blind spots, loss of peripheral vision, transient loss of vision, blurry vision, change in vision, double vision, floaters or tunnel vision ENT ENT: Negative for headache(s), dizziness, Nosebleed/epistaxis, balance problems or neck pain Cardio Chest Pain: Yes Character: other (discomfort) Onset: at rest Location: left chest (radiation to his left arm) Duration: hours and brief Palpitations: No Edema: None Muscle aches with walking: None Resp Respiratory: Negative for SOB with activity, SOB at rest or SOB orthopnea\SOB lying down GI GI: Negative nausea, vomiting, heartburn, bloating, vomiting blood/hematemesis, bright, red blood in stools or black,tarry stools Musc Musc: Negative for muscle aches/ myalgia, muscle weakness, joint pain or balance problems Neuro Neuro: Negative for dizziness, lightheadedness, near syncope, syncope, ort hostatic symptoms, frequent falls, headache(s), weakness, blurry vision or double vision Chauncey Hematologic/Lymphatic: Negative for easy bleeding or easy bruising Endo Endo: Positive for fatigue Cardiology Exam Const Appearance: cooperative and no acute distress Orientation: alert and oriented x3 Head Head: normal to inspection Ears: hearing grossly normal bilaterally Nose: external nose normal Face and Sinus: face symmetric Eyes General: appearance normal, both eyes and all related structures Eyelids: eyelids normal Conjunctivae: conjunctivae normal Pupils: PERRL and pupil size EOM: EOM intact bilaterally Neck Neck: normal visual inspection Carotids: Negative bruit Chest Chest inspection: normal inspection of the chest and normal respiratory effort Auscultation: Bilateral: Clear to Auscultation Cardio Palpation: normal PMI Rate: regular rate Rhythm: regular rhythm Heart sounds: S1 normal and S2 normal; Negative rub, gallop or murmur GI GI: normal to inspection and soft; Negative no hepatosplenomegaly Neuro General: patient alert, patient oriented x3 and CN's II-XI intact bilaterally Skin Skin: no rashes or lesions noted Extremities Pulses: Normal: Right Posterior Tibial Pulse, Left Posterior Tibial Pulse, Right Radial Pulse and Left Radial Pulse Lower Extremity Edema: None: Bilateral Psych Psychological: normal affect Supplemental Info Supplemental Information Stress test 08/20/2021: Procedure: Exercise tolerance test/imaging study Indications: Chest pain; CAD; status post PCI Consent: Per the patient Procedure: The patient exercised on a Jono protocol for 10 minutes and 25 seconds completing Stage III and 1 minute and 25 seconds of Stage IV achieving a peak heart rate of 171 bpm (101% predicted maximal heart rate) with a peak blood pressure 184/80 mmHg and a peak MET capacity of 13 METs. The baseline ECG demonstrated normal sinus rhythm; nonspecific T wave abnormality. The peak exercise ECG demonstrated somatic/motion artifact with the appearance of, during stress, approximately [address] segment depression in leads II, III, and aVF and in early recovery approximately 0.[address] segment depression in lead V4 through V6. There were occasional PVCs during exercise and recovery; rare ventricular couplets during exercise; an isolated ventricular triplet/quadruplet during exercise. The functional capacity was considered good. There was no complaint of chest discomfort during exercise or recovery. The examination was discontinued secondary to dyspnea. Impression: 1. Technically adequate (percent predicted maximal heart rate greater than 85%) exercise tolerance test 2. Peak exercise ECG with somatic/motion artifact with the appearance of, during stress, approximately [address] segment depression in leads II, III, and aVF and in early recovery approximately 0.[address] segment depression in lead V4 through V6 3. There were occasional PVCs during exercise and recovery; rare ventricular couplets during exercise; an isolated ventricular triplet/quadruplet during exercise 4. Nuclear images pending Myocardial perfusion imaging study: Technique: The patient was injected with 11.3 mCi of technetium 99m Cardiolite and subsequently rest SPECT Cardiolite nuclear imaging was obtained in the horizontal long, vertical long, and short axis views. The patient exercised on a Jono protocol for 10 minutes and 25 seconds completing Stage III and 1 minute and 25 seconds of Stage IV achieving a peak heart rate of 171 bpm (101% predicted maximal heart rate) with a peak blood pressure 184/80 mmHg and a peak MET capacity of 13 METs. The patient was injected with 33.7 mCi of technetium 99m Cardiolite and subsequently stress SPECT Cardiolite nuclear imaging was obtained in the horizontal long, vertical long, and short axis views. A gated Cardiolite study at peak stress was obtained. Interpretation: Rest and stress SPECT Cardiolite nuclear imaging status post realignment, normalization, and attenuation correction, demonstrates the appearance of relative uniform tracer uptake and myocardial perfusion appearing within normal limits. There is end systolic thickening and brightening. The gated Cardiolite study demonstrates myocardial thickening and inward wall motion. The reported LVEF is 61%. Impression: 1. Rest and stress SPECT Cardiolite nuclear imaging demonstrate relative un iform tracer uptake and myocardial perfusion appearing within normal limits. 2. The gated Cardiolite study reports an LVEF of 61%. Transthoracic echocardiogram: 05-11-2020 Interpretation Summary Mild segmental systolic dysfunction (see wall motion). The estimated ejection fraction is 50 %. Trivial mitral valve insufficiency. Trivial tricuspid valve insufficiency. Trivial pulmonic valve insufficiency. Transmitral doppler flow suggestive of impaired relaxation of left ventricle Stress Test Report Date: 05-11-2020 Procedure: Exercise tolerance test/imaging study Indications: Chest pain Consent: Per the patient Procedure: The patient exercised on a Jono protocol for 9 minutes completing Stage III achieving a peak heart rate of 155 bpm (91% predicted maximal heart rate) with a peak blood pressure 178/98 mmHg and a peak MET capacity of 10 METs. The baseline ECG demonstrated normal sinus rhythm; T wave abnormality: Consider myocardial bukvvsto-ieldvyrt-icclyvn-inferior. The peak exercise ECG demonstrated no obvious ECG changes. There were occasional PVCs and an isolated ventricular couplet during exercise and occasional PVCs during recovery. The functional capacity was considered good. There was no complaint of chest discomfort during exercise or recovery. The examination was discontinued secondary to target heart rate achieved. Impression: 1. Technically adequate (percent predicted maximal heart rate greater than 85%) exercise tolerance test 2. Peak exercise ECG with no obvious ECG changes 3. There were occasional PVCs and an isolated ventricular couplet during exercise and occasional PVCs during recovery 4. Nuclear images pending Myocardial perfusion imaging study: Technique: The patient was injected with 11.7 mCi of technetium 99m Cardiolite and subse quently rest SPECT Cardiolite nuclear imaging was obtained in the horizontal long, vertical long, and short axis views. The patient exercised on a Jono protocol for 9 minutes completing Stage III achieving a peak heart rate of 155 bpm (91% predicted maximal heart rate) with a peak blood pressure 178/98 mmHg and a peak MET capacity of 10 METs. The patient was injected with 32.5 mCi of technetium 99m Cardiolite and subsequently stress SPECT Cardiolite nuclear imaging was obtained in the horizontal long, vertical long, and short axis views. A gated Cardiolite study at peak stress was obtained. Interpretation: Rest and stress SPECT Cardiolite nuclear imaging status post realignment, normalization, and attenuation correction, demonstrates the appearance status post stress of an area of diminished tracer uptake in portions of the mid inferior segments. There is end systolic thickening and brightening. The gated Cardiolite study demonstrates myocardial thickening and inward wall motion. The reported LVEF is 58%. Impression: 1. Rest and stress SPECT Cardiolite nuclear imaging demonstrate myocardial perfusion changes concerning for an area of stress-induced myocardial ischemia in the mid inferior segments, however, an element of shifting soft tissue attenuation/artifact cannot necessarily be excluded. 2. The gated Cardiolite study reports an LVEF of 58%. Cardiac catheterization: 05-11-2020 CONCLUSIONS Elevated Left Ventricular End Diastolic Pressure Segmented LV systolic dysfunction- Mild LVEF: by LV gram 50 % [place] Multivessel CAD RECOMMENDATIONS Risk factor modification Medical therapy Referred for immediate PCI DESCRIPTION OF PROCEDURE The patient arrived to the procedure lab. The risks and benefits of the procedure as well as a full description of our services here and current unavailability of surgical backup were fully explained to the patient and/or their significant other prior to the catheterization. The Timeout was completed, verifying the correct patient and procedure. The patient's procedural site was prepped and draped in the usual fashion. Local anesthetic was given subcutaneously to right radial region with Lidocaine 2%. Using a modified Seldinger technique, arterial access was obtained via the right radial artery, a 6Fr sheath was inserted. Left Coronary Artery selective angiography was performed in multiple views using a 5 Fr. 4.0 [place] catheter. Right Coronary Artery selective angiography was then performed in multiple views using a 5 Fr. 4.0 [place] catheter. Left Ventriculography was performed in SYED projection using a 5 Fr. Pigtail catheter. LV to AO pullback pressures were then recorded.The arterial sheath was pulled and a TR Band was applied for hemostasis CORONARY ANGIOGRAPHY DOMINANCE: Right Dominant LEFT HEART ASSESSMENT Left Ventricular Ejection Fraction: by LV Gram 50 % Inferior Mid Hypokinesis Elevated Left Ventricular End Diastolic Pressure LVEDP: 24 mmHg LEFT MAIN: Angiographically normal LEFT ANTERIOR DESCENDING ARTERY: PROX LAD: Moderate calcification, 50 - 75 % Stenosis MID LAD: 50 - 75 % Stenosis CIRCUMFLEX ARTERY: Mild luminal irregularities RIGHT CORONARY ARTERY: Mild luminal irregularities MID RCA: Long: Diffuse: 90 % Stenosis AORTIC ROOT: Angiographically normal PCI: 05-11-2020 RCA: PTCA/JANIS: Synergy 3.0 x 20 mm stent Labs: LDL Cholesterol 196 mg/dL (0-130) H HDL Cholesterol 52 mg/dL (40-) Triglycerides 103 mg/dL (-199) VLDL Cholesterol 21 mg/dL (5-40) Diagnostics: Electrocardiogram Echocardiogram Stress Test NM Stress Test Cardiac Catheterization Chest X-Ray Pulmonary: No Data to Display Assessment and Plan Assessment and Plan (1) Chest pain: Status: Acute Orders: Orders: Left Heart Cath/COR/LV Percut 09/17/21 Chest PA and Lateral Today Plan - Haley Parks NP, HVAC SALES ENGINEER-C: Patient does have complaints of chest discomfort with radiation to his left arm. His EKG from today demonstrates sinus rhythm with heart rate of [address] depression and diffuse nonspecific T wave abnormality. His stress test from 08/2021 did demonstrate changes in the ECG portion of the stress test. He will be scheduled for a cardiac catheterization to further evaluate this. Cardiac catheterization instructions were given to patient. (2) Atherosclerotic heart disease of [place] coronary artery without angina pectoris: Status: Chronic Qualifiers: [place] vs. transplanted heart: [place] heart Qualified Code(s): I25.10 - Atherosclerotic heart disease of [place] coronary artery without angina pectoris Orders: Orders: 12 Lead EKG performed by BMS Today Left Heart Cath/COR/LV Percut 09/17/21 Basic Metabolic Profile (BMP) Today Partial Thromboplast Time Today CBC W/Diff, Automated Today Plan - Haley Parks HVAC SALES ENGINEER, HVAC SALES ENGINEER-C: Patient has a history of coronary artery disease. He does have complaints of chest discomfort. His most recent stress test from 08/2021 did demonstrate ECG changes. With patients symptoms, and changes on his ECG portion of the stress test, he will be scheduled for a cardiac catheterization to evaluate this. At this time, he will continue with his current medical therapy, along with aggressive risk factor and lifestyle modifications. (3) Presence of stent in coronary artery: Status: Acute Comment: Successful JANIS to mRCA 05/11/2020 Orders: Orders: 12 Lead EKG performed by BMS Today Plan - Haley Parks HVAC SALES ENGINEER, HVAC SALES ENGINEER-C: Patient has a history of coronary artery disease, with stent placement in 2019. He does have complaints of chest discomfort. His most recent stress test from 08/2021 did demonstrate ECG changes. With patients symptoms, and changes on his ECG portion of the stress test, he will be scheduled for a cardiac catheterization to evaluate this. At this time, he will continue with his current medical therapy, along with aggressive risk factor and lifestyle modifications. Plan Details Additional Comments: Patient will follow up in 5 months, or sooner if needed. Thank you for allowing me to participate in the care of your patient. Please don't hesitate to call if any issues arise. This note was generated using a voice recognition system and there may be incorrect words, spelling, or punctuation that were not noted when reviewing the office note prior to saving. Follow Up: Keep as is (MMM) COVID (Procedure Consent) Procedure Criteria Procedure Criteria: Yes Elective The surgeon/proceduralist and patient have discussed in detail the risk of exposure to and/or potential harm posed by the COVID-19 virus with having a surgery/procedure at this time versus the risk of delaying the surgery/procedure. It is not possible to know either the risk of delaying the surgery or procedure or chance of getting an infection with perfect accuracy, but a joint decision was made between the patient and the surgeon/proceduralist to proceed at this time with the scheduled surgery/procedure as indicated on the consent form. Coding Level of Care Code Off vis,est,level 4 Diagnoses Chest pain R07.9 Atherosclerotic heart disease of [place] coronary artery without angina pectoris I25.10 [place] vs. transplanted heart: [place] heart Presence of stent in coronary artery Z95.5 Coding Level of Care Code Off vis,est,level 4 Diagnoses Chest pain R07.9 Atherosclerotic heart disease of [place] coronary artery without angina pectoris I25.10 [place] vs. transplanted heart: [place] heart Presence of stent in coronary artery Z95.5 09/06/21 1654<Electronically signed by Haley Parks HVAC SALES ENGINEER HVAC SALES ENGINEER-C>Date Haley Parks HVAC SALES ENGINEER HVAC SALES ENGINEER-C 09/06/21 2100<Electronically signed by Abelardo Carcamo MD>Cosigner Signature:Date (if applicable)Abelardo Caracmo MD CC: Dr. Albino Almaguer MD ~ Assessment & Plan Addt'l Comments I have re-examined the patient. There are no clinical changes since date of exam
--- NOTE | 2021-09-17 11:43 | CL.I_ITS ---
Patient Name: CALVIN ROWE Study Date: 09/17/2021 Performing: Rachael Franz MD Ht: 68.89 inches 175 cm : 1970 Wt: 167.55 lbs 76 kg Age: 51 Gender: male BSA: 1.91 PROCEDURE(S) PERFORMED IC12-(53517/[id number])JANIS W/WO PTCA, SINGLE CORONARY ARTERY CLINICAL PROFILE AND CO-MORBIDITIES Indications: Suspected CAD Heart Failure: None Stress/Imaging Date: 08/20/2021 Angina Classification Anginal Classification w/in 2 Weeks: CCS II CAD Presentations: Other: worsening angina CONCLUSIONS Unsuccessful PCI of LAD RECOMMENDATIONS High risk PCI versus MIDCAB BLUM to LAD at a center with CT surgery backup DESCRIPTION OF PROCEDURE The patient arrived to the procedure lab. The risks and benefits of the procedure as well as a full d escription of our services here and current unavailability of surgical backup were fully explained to the patient and/or their significant other prior to the catheterization. The Timeout was completed, verifying the correct patient and procedure. The patient's procedural site was prepped and draped in the usual fashion. Local anesthetic was given subcutaneously to right radial region with Lidocaine 2% Using a modified Seldinger technique,arterial access was obtained via the right radial artery, a 6Fr sheath was inserted. Right Coronary Artery selective angiography was then performed in multiple view s using a 5 Fr. 4.0 [place] catheter. Left Coronary Artery selective angiography was performed in multi ple views using a 5 Fr. JL3.5 catheter. Left Ventriculography was performed in SYED projection using a 5 Fr. Pigtail catheter. LV to AO pullback pressures were then recorded.The images were reviewed and options discussed. A decision was then made to proceed with an Intervention, IVUS or oth er adjunct procedure. XB 3.0 Guide catheter was inserted and engaged into the LCA. BMW Guide wire was advanced to the L AD. Whisper Guide wire was advanced to the 1st Diagonal. Emerge 2.00x12 Balloon catheter was inserted . The arterial sheath was pulled and a TR Band was applied for hemostasis w/ 12ml air INTERVENTION INFORMATION LESION SITE: LAD (Mid) Lesion Complexity: High/C, chronic total occlusion: No, lesion at bifurcation: Yes, thrombus present: No, lesion length: 12 mm, culprit lesion: Yes Pre Stenosis: 80 % Pre intervention LUIS MIGUEL flow: 3 Initial attempts at crossing the lesion were unsuccessful. We wanted to use an [id number] balloon position close to the lesion to change the shape of the wire tip to try to cross the lesion. Howeve r due to significant proximal calcification and tortuosity both proximally and distally we felt that it is better to perform such an attempt at a place with bypass surgery backup. Alternatively MIDCAB BLUM to LAD is also reasonable option in this patient. Post Stenosis: 80 % Post intervention LUIS MIGUEL flow: 3 Lesion Devices: Suresh .014 BMW [place] Straight 190cm Cardinal 6 Fr XB3.0 100cm Guide Catheter COMPLICATIONS No Complications PROCEDURE MEDICATIONS Versed 1 mg IV Fentanyl 50 mcg IV Versed 1 mg IV Fentanyl 50 mcg IV Oxygen: 2 L/min via nasal cannula Heparin given IA 09/17/2021 10:12:20 Heparin 3000 unit(s) IV 09/17/2021 10:48:02 Nitro 100 mcg IC 09/17/2021 11:09:32 Verapamil 2.5mg, Ntg 100mcgs, 3000 units of Heparin given IA 09/17/2021 10:12:20 SUMMARY OF HEMODYNAMIC DATA Time AIR REST ECG 08:57:05 Art 131/70 (91) 10:15:28 AO 114/68 (90) SA 10:23:44 LV 138/0, 26 10:37:27 LV 139/0, 25 10:37:33 LV 125/14, 36 10:38:14 LV 139/15, 32 10:38:20 LVp 132/18, 27 10:38:25 AOp 124/65 (91) 10:38:30 Signed By Rachael Franz MD On 09/17/2021 11:41:51 Rachael Franz MD
--- NOTE | 2021-09-17 14:13 | CL.D_ITS ---
Patient Name: CALVIN ROWE Study Date: 09/17/2021 Performing: Abelardo Carcamo MD Ht: 69 inches 175 cm : 1970 Wt: 167.8 lbs 76 kg Age: 51 Gender: male BSA: 1.91 PROCEDURE(S) PERFORMED DC01-(10224)LHC/COR/LV IC12-(27857/C9600)JANIS W/WO PTCA, SINGLE CORONARY ARTERY CLINICAL PROFILE AND INDICATIONS Indications: Suspected CAD Heart Failure: None Stress/Imaging Date: 08/20/2021 Angina Classification Anginal Classification w/in 2 Weeks: CCS II CAD Presentations: Other: worsening angina CONCLUSIONS Elevated Left Ventricular End Diastolic Pressure Normal LV size, wall motion,and systolic function LVEF: by LV gram 55 % [place] Multivessel CAD RECOMMENDATIONS Risk factor modification Medical therapy Referred for immediate PCI Case discussed / reviewed with Dr. Franz of Interventional Cardiology DESCRIPTION OF PROCEDURE The patient arrived to the procedure lab. The risks and benefits of the procedure as well as a full d escription of our services here and current unavailability of surgical backup were fully explained to the patient and/or their significant other prior to the catheterization. The Timeout was completed, verifying the correct patient and procedure. The patient's procedural site was prepped and draped in the usual fashion. Local anesthetic was given subcutaneously to right radial region with Lidocaine 2% . Using a modified Seldinger technique, arterial access was obtained via the right radial artery, a 6 Fr sheath was inserted. Right Coronary Artery selective angiography was then performed in multiple v iews using a 5 Fr. 4.0 Melvin catheter. Left Coronary Artery selective angiography was performed in mu ltiple views using a 5 Fr. JL3.5 catheter. Left Ventriculography was performed in SYED projection usin g a 5 Fr. Pigtail catheter. LV to AO pullback pressures were then recorded.The arterial sheath was pulled and a TR Band was applied for hemostasis w/ 12ml air CORONARY ANGIOGRAPHY DOMINANCE: Right Dominant LEFT HEART ASSESSMENT Left Ventricular Ejection Fraction: by LV Gram 55 % Normal LV wall motion Elevated Left Ventricular End Diastolic Pressure LVEDP: 25 mmHg LEFT MAIN: Angiographically normal LEFT ANTERIOR DESCENDING ARTERY: PROX LAD: Moderate calcification, 50 % Stenosis MID LAD: hazy: 85 % Stenosis DIAGONAL 2: Ostial - 50 % Stenosis CIRCUMFLEX ARTERY: Mild luminal irregularities RIGHT CORONARY ARTERY: Mild luminal irregularities MID RCA: Previously placed stent is patent AORTIC ROOT: Angiographically normal COMPLICATIONS No Complications PROCEDURE MEDICATIONS Versed 1 mg IV Fentanyl 50 mcg IV Versed 1 mg IV Fentanyl 50 mcg IV Oxygen: 2 L/min via nasal cannula Heparin given IA 09/17/2021 10:12:20 Heparin 3000 unit(s) IV 09/17/2021 10:48:02 Nitro 100 mcg IC 09/17/2021 11:09:32 Verapamil 2.5mg, Ntg 100mcgs, 3000 units of Heparin given IA 09/17/2021 10:12:20 SUMMARY OF HEMODYNAMIC DATA Time AIR REST ECG 08:57:05 Art 131/70 (91) 10:15:28 AO 114/68 (90) SA 10:23:44 LV 138/0, 26 10:37:27 LV 139/0, 25 10:37:33 LV 125/14, 36 10:38:14 LV 139/15, 32 10:38:20 LVp 132/18, 27 10:38:25 AOp 124/65 (91) 10:38:30 Signed By Abelardo Carcamo MD On 09/17/2021 14:12:01 Abelardo Carcamo MD
== END 2021-09-17 23:59 | disposition home or self-care (01) ==
LOC: CLSP 08:31
PROVIDERS: Nurse Practitioner Family; Nurse Practitioner Gerontology; PCP Family Medicine; Referring Provider Internal Medicine Cardiovascular Disease; Visit Provider Internal Medicine Cardiovascular Disease
DX: I25.119 Atherosclerotic heart disease of native coronary artery with unspecified angina pectoris (principal); I25.2 Old myocardial infarction; Z98.61 Coronary angioplasty status; Z79.82 Long term (current) use of aspirin; Z79.899 Other long term (current) drug therapy
CPT/HCPCS: 36415; 71046; 80048; 80061; 80076; 85025; 85730; 92928; 93458; 99152; 99153; J7040; Q9967; C1725; C1769; C1887; C1894; C9600

== ENCOUNTER → 2021-11-25 | Outpatient (CLI) | payer OTHER, SELFPAY ==
[2021-11-25 15:29] LABS: Absolute Lymphocyte Count 2.46 X10^3/uL (0.83-4.51); Absolute Neutrophil Count 3.6 X10^3/uL (2.0-7.7); Basophil# 0.07 X10^3/uL; Eosinophil# 0.29 X10^3/uL; Hematocrit 42.3 % (40-54); Hemoglobin 13.6 g/dL (13.0-16.5); Lymphocyte # 2.46 X10^3/ul (0.83-4.51); Lymphocyte % 33.6 % (19-41); Mean Corp Hgb Conc 32.2 g/dL (32-36); Mean Corpuscular Hgb 29.6 pg (27.0-32.0); Monocyte# 0.86 X10^3/uL; Monocyte% 11.7 % (0-10); NRBC Flagged by Analyzer 0 % (0-5); Platelet Count 355 K/mm3 (150-450); RBC Distribution Width CV 12.7 % (11.6-14.6); RBC Distribution Width SD 42.5 fl (35.1-43.9); White Blood Count 7.3 K/mm3 (4.4-11.0)
[2021-11-25 15:53] LABS: Anion Gap 5 (5-15); BUN 17 mg/dL (7-18); BUN/Creat Ratio 16.3 RATIO (10-20); Calcium,Total 9.2 mg/dL (8.5-10.1); Chloride 103 mmol/L (98-107); Creatinine, Serum 1.04 mg/dL (0.70-1.30); EST Glomerular Filtration Rate 80 mL/min (>60); Est Glom Filt Rate - Afr Amer 96 mL/min (>60); Glucose 110 mg/dL (74-106); Sodium Level 137 mmol/L (136-145)
== END | disposition home or self-care (01) ==
LOC: LAB 15:01
PROVIDERS: PCP Family Medicine; Visit Provider Nurse Practitioner Gerontology
DX: R53.83 Other fatigue (principal)
CPT/HCPCS: 36415; 80048; 85025

== ENCOUNTER → 2024-07-08 | Outpatient (CLI) | payer OTHER, SELFPAY ==
[2024-07-08 12:14] LABS: AST(SGOT) 19 U/L (15-37); Alanine Aminotransfer ALT/SGPT 25 U/L (16-61); Albumin, Serum 3.9 g/dL (3.2-5.0); Alkaline Phosphatase 69 U/L (45-117); Cholesterol 345 mg/dL (200); Globulin 4.2 g/dL (2.2-4.2); High Density Lipoprotein 58 mg/dL; Protein, Total 8.1 g/dL (6.4-8.2); Triglycerides 111 mg/dL; Very Low Density Lipoprotein 22 mg/dL (5-40)
== END | disposition home or self-care (01) ==
LOC: LAB 10:45
PROVIDERS: PCP Family Medicine; Referring Provider Internal Medicine Cardiovascular Disease; Visit Provider Internal Medicine Cardiovascular Disease
DX: E78.5 Hyperlipidemia, unspecified (principal); Z95.1 Presence of aortocoronary bypass graft
CPT/HCPCS: 36415; 80061; 80076